=== PATIENT | female | born 1960 | race American Indian/Alaskan Native ===

== ENCOUNTER 2025-01-10 08:27 | Outpatient (CLI) | payer MEDICARE, SELFPAY ==
--- OUTSIDE RECORDS SUMMARY | 2025-01-10 08:47 | XMS_ITS | Clinical Summary ---
Author Organization [facility] Address [address] [place] [address] Phone Care Team Providers Care Senior Program Analyst Name Role Phone Tiff Cristina MD Primary Care Provider Social History Tobacco Use Types Packs/Day Years Used Date Smoking Tobacco: Never Assessed Comments No Sex and Gender Information Value Date Recorded Sex Assigned at Not on file Legal Sex Female 4:25 PM CDT Gender Identity Not on file Sexual Orientation Not on file Plan of Treatment Health Maintenance Due Date Last Done Comments DEXA Bone Density 1960 Hepatitis C Virus (HCV) Screening 1960 TdaP Immunization 1958 Pap Smear 12/24/1979 Cervical Cancer Screening (CCS) 1988 HPV/Cotest 1988 Colonoscopy 12/24/2003 Colorectal Cancer Screening 12/24/2003 Cologuard 2008 Immunochemical Fecal Occult Blood 2008 Pneumococcal Immunization (5 0+ years) (1 of 1 - PCV) 2008 Zoster Immunization (1 of 2) 2008 Mammogram 01/26/2018 01/27/2016 Influenza Immunization (#1) 2024 SARS-COV-2 Immunization ( - 2023- season) 2024 Respiratory Syncytial Virus (RSV) Immunization (Adult) (1 - 1-dose 75+ series) 2033 Hepatitis B Immunization Aged Out No longer eligible based on patient's age to complete this topic Meningococcal Immunization (ACWY) Aged Out No longer eligible based on patient's age to complete this topic Rotavirus Immunization Aged Out No lo nger eligible based on patient's age to complete this topic Procedures Procedure Name Priority Date/Time Associated Diagnosis Comments DARCY SCREENING BILATERAL DIGITAL W CAD Routine 01/27/2016 4:19 PM CDT Encounter for screening mammogram for malignant neoplasm of breast from Last 3 Months or Most Recently Relevant to Health Maintenance Results * DARCY SCREENING BILATERAL DIGITAL W CAD (01/27/2016 4:19 PM CDT) Anatomical Region Laterality Modality breast Bilateral Mammography 01/27/2016 3:58 PM CDT Narrative 02/06/2016 7:47 AM CDT - DARCY SCREENING BILATERAL DIGITAL W CAD BILATERAL DIGITAL SCREENING MAMMOGRAM WITH CAD WITH MEDIOLATERAL OBLIQUE CRANIOCAUDAL: 01/27/2016 The study was acquired using digital technology and interpreted from soft copy. Current study was also evaluated with [email or web address] version 7.2. CLINICAL: Routine screening. Patient has no complaints. No personal history of cancer. No family history of breast cancer. COMPARISONS: Comparison is made to exams dated: 03/31/2012, 04/21/2012, 03/28/2013, and 04/19/2014 [facility]. BREAST TISSUE:The tissue of both breasts is heterogeneously dense. This may lower the sensitivity of mammography. FINDINGS: No significant masses, calcifications, or other findings are seen in either breast. There has been no significant interval change. IMPRESSION: BI-RAD 1 NEGATIVE There is no mammographic evidence of malignancy. A 1 year screening mammogram is recommended. The patient has been or will be contacted. The patient will be entered into a reminder system with a target due date of 1 year for her next screening exam. Electronically signed by: Jose Carlos morales/abigail:02/05/2016 08:25:42 [employer]likview Developer: Akua Aviles, [facility] letter sent: Normal Exam Reading location: [facility] BI-RADS: 1 Negative Procedure Note Jose Carlos Sanford MD - 02/06/2016 - DARCY SCREENING BILATERAL DIGITAL W CAD BILATERAL DIGITAL SCREENING MAMMOGRAM WITH CAD WITH MEDIOLATERAL OBLIQUE CRANIOCAUDAL: 01/27/2016 The study was acquired using digital technology and interpreted from soft copy. Current study was also evaluated with ICAD version 7.2. CLINICAL: Routine screening. Patient has no complaints. No personal history of cancer. No family history of breast cancer. COMPARISONS: Comparison is made to exams dated: 03/31/2012, 04/21/2012, 03/28/2013, and 04/19/2014 [facility]. BREAST TISSUE:The tissue of both breasts is heterogeneously dense. This may lower the sensitivity of mammography. FINDINGS: No significant masses, calcifications, or other findings are seen in either breast. There has been no significant interval change. IMPRESSION: BI-RAD 1 NEGATIVE There is no mammographic evidence of malignancy. A 1 year screening mammogram is recommended. The patient has been or will be contacted. The patient will be entered into a reminder system with a target due date of 1 year for her next screening exam. Electronically signed by: Jose Carlos Sanford M.D. bs/abigail:02/05/2016 08:25:42 [employer] Developer: Akua Aviles, [facility] letter sent: Normal Exam Reading location: [facility] BI-RADS: 1 Negative us Floyd Newman MD IMG MAMMO ORDERABLES F inal Result from Last 3 Months or Most Recently Relevant to Health Maintenance Care Teams Senior Program Analyst Relationship Specialty Start Date End Date Tiff Cristina MD [address] [place] [address] PCP - General Internal Medicine 12/24/15
--- OUTSIDE RECORDS SUMMARY | 2025-01-10 08:47 | XMS_ITS | Data Portability ---
Author Organization [facility] Address [address] [facility] [place] [address] Care Team Providers Care Speech Pathology Supervisor Name Role Phone TIFF COBURN Primary Care Provider [phone] Assessment No assessment recorded. Plan of Treatment Reminders Order Date Submit Date Provider Last Modified By Organization Details Last Modified Time Details Appointments None recorded. Lab BMP, serum or plasma 2020 021 [facility], [address] [place] [address], [place] [address], [place], [address], 07:07:46 lipid panel, serum 2020 021 [facility], [address] [place] [address], [facility] [address], [place], [address], 07:07:47 CBC 2020 021 [facility], [address] [place] [address], [facility] [address], [place], [address], 07:07:45 vitamin D, 25-hydrox y, total, serum 2020 021 [facility], [address] [place] [address], [facility] [address], [place], [address], 07:07:47 SARS CoV 2 RNA (COVID-19 ), QL, taper operator-PCR, respirato ry specimen - [place] location please 1300 2019 020 [facility] (Lab), [address] [place], [address], 0 11:02:47 Referral orthopedi c referral 2020 021 [facility], [address] [facility], [facility] [address], [place], [address], 1 10:57:16 Procedures None recorded. Surgeries None recorded. Imaging electroca rdiogram 2020 021 [facility] ([facility]), [address] [place], [address], 1 10:52:16 electroca rdiogram 2020 021 [email or web address] In-Office Order, Internal Use Only DO Not Attach Compendium DO Not Attach Compendium, Do Not Delete/merge, [id number] 1 11:49:13 MAMMO, screening , digital, bilateral 2020 021 [facility], [address], [place] [address], [place], [address], 1 16:28:53 XR, humerus 2016 017 [facility], [address] [place], [address], 7 15:22:44 Medication Orders naproxen 500 mg tablet,de layed release 2016 017 INTERFACE Not available 7 12:15:00 acetamino phen 500 mg tablet 2016 017 INTERFACE [id number], [address], [place], [id number], 7 12:14:04 cyclobenz aprine 10 mg tablet 2016 017 INTERFACE Not available 7 12:15:02 Patient TargetsNo targets recorded. Patient Instructions Encounter Date Encounter Id Patient Instructions Last Modified By Organization Details Last Modified Time 02/09/2020 [id number] Reviewed the following recommendations: -Stay home and separate from others as much as possible. -Monitor your symptoms and seek medical attention for trouble breathing, persistent chest pain, confusion, or bluish lips or face. -Wear a mask if you must be around other people. -Wash your hands often for 20 seconds with soap and water and clean high-touch surfaces daily -You may discontinue home isolation if your symptoms are improving and it has been 10 days since symptoms started. [email or web address] Not available 02/09/2020 11:09:04 Reason for Referral Orthopedic Referral for Acqu ired curvature of spine Referring Physician: Tiff Coburn, Internal Medicine, Encounter Date: 02/12/2021 Results Created Date Observation Date Name Description Value Unit Range Abnormal Flag Note LastModifiedBy Organization Detail LastModifiedTime 04/26/20 17 04/27/2017 fecal occul t blood , stool Occult Blood negati ve Not Available In-Office Order Internal Use Only DO Not Attach Compendium DO Not Attach Compendium, Do Not Delete/merge, [id number] 04/26/2017 15:57:02 04/26/20 17 04/26/2017 urina lysis , dipst ick Leukocytes Small Not Available In-Offi ce Order Internal Use Only DO Not Attach Compendium DO Not Attach Compendium, Do Not Delete/merge, [id number] 04/26/2017 15:41:59 04/26/20 17 04/26/2017 urina lysis , dipst ick Nitrite negati ve Not Available In-Office Order Internal Use Only DO Not Attach Compendium DO Not Attach Compendium, Do Not Delete/merge, [id number] 04/26/2017 15:41:59 04/26/20 17 04/26/2017 urina lysis , dipst ick Urobilinogen .2 Not Available In-Of fice Order Internal Use Only DO Not Attach Compendium DO Not Attach Compendium, Do Not Delete/merge, [id number] 04/26/2017 15:41:59 04/26/20 17 04/26/2017 urina lysis , dipst ick Protein Negati ve Not Available In-Office Order Internal Use Only DO Not Attach Compendium DO Not Attach Compendium, Do Not Delete/merge, 04/26/2017 15:41:59 04/26/20 17 04/26/2017 urina lysis , dipst ick pH 6.5 Not Available In-Office Order Internal Use Only DO Not Attach Compendium DO Not Attach Compendium, Do Not Delete/merge, 04/26/2017 15:41:59 04/26/20 17 04/26/2017 urina lysis , dipst ick Blood Negati ve Not Available In-Office Order Internal Use Only DO Not Attach Compendium DO Not Attach Compendium, Do Not Delete/merge, 04/26/2017 15:41:59 04/26/20 17 04/26/2017 urina lysis , dipst ick Specific [place] 1.025 Not Available In-Off ice Order Internal Use Only DO Not Attach Compendium DO Not Attach Compendium, Do Not Delete/merge, 04/26/2017 15:41:59 04/26/20 17 04/26/2017 urina lysis , dipst ick Ketone Negati ve Not Available In-Office Order Internal Use Only DO Not Attach Compendium DO Not Attach Compendium, Do Not Delete/merge, 04/26/2017 15:41:59 04/26/20 17 04/26/2017 urina lysis , dipst ick Bilirubin Negati ve Not Available In-Office Order Internal Use Only DO Not Attach Compendium DO Not Attach Compendium, Do Not Delete/merge, 04/26/2017 15:41:59 04/26/20 17 04/26/2017 urina lysis , dipst ick Glucose Negati ve Not Available In-Office Order Internal Use Only DO Not Attach Compendium DO Not Attach Compendium, Do Not Delete/merge, 04/26/2017 15:41:59 04/26/20 17 04/28/2017 pap, IG + HPV, cervi ute diagnosis: COMMEN T NEGAT CATHY FOR INTRA EPITH ELIAL LESIO N AND MALIG PATY . CELLU LAR MCCAIN ES ASSOC IATED WITH ATROP HY ARE PRESE NT. Not Available [facility] ([facility]) [address] [facility], [place], [address], 04/28/2017 14:11:31 04/26/20 17 04/28/2017 pap, IG + HPV, cervi ute specimen adequacy: STANTON Benton SATIS FACTO RY FOR EVALU ATION . ENDOC ERVIC AL COMPO NENT MAY NOT BE DISTI NGUIS HED IN CASES OF ATROP HY. Not Available [facility] ([facility]) [address] [place], [address], 04/28/2017 14:11:31 04/26/20 17 04/28/2017 pap, IG + HPV, cervi ute clinician provided ICD10: STANTON Benton Z01.4 19 Not Available [facility] ([facility]) [address] [place], [address], 04/28/2017 14:11:31 04/26/20 17 04/28/2017 pap, IG + HPV, cervi ute performed by: STANTON Garner CYTOChetan Benton (ASCP ) Not Available [facility] ([facility]) [address] [place], [address], 04/28/2017 14:11:31 04/26/20 17 04/28/2017 pap, IG + HPV, cervi ute . . Not Available [facility] ([facility]) [address] [place], [address], 04/28/2017 14:11:31 04/26/20 17 04/28/2017 pap, IG + HPV, cervi ute note: STANTON Benton THE PAP SMEAR IS A SCREE DANIELLE TEST DESIG HENRIETTA TO AID IN THE DETEC TION OF DAVID LIGNA NT AND MALIG NANT CONDI TIONS OF THE UTERI NE CERVI X. IT IS NOT A DIAGN OSTIC PROCE DURE AND SHOUL D NOT BE USED THE SOLE MEANS OF DETEC TING CERVI UTE CANCE R. BOTH FALSE -POSI TIVE AND FALSE -NEGA TIVE REPOR TS DO OCCUR . Not Available [facility] ([facility]) [address] [facility], [place], [address], 04/28/2017 14:11:31 04/26/20 17 04/28/2017 pap, IG + HPV, cervi ute test methodology: COMMEN T THIS LIQUI D BASED THINP REP(R ) PAP TEST WAS SCREE HENRIETTA WITH THE USE OF AN IMAGE GUIDE Anu Torres. Not Available [facility] ([facility]) [address] [facility], [place], [address], 04/28/2017 14:11:31 04/26/20 17 04/28/2017 pap, IG + HPV, cervi ute HPV aptima POSITI VE negati ve abnormal THIS TEST DETEC TS FOURT EEN HIGH- RISK HPV TYPES (16/1 8/31/ 33/35 /39/4 5/ 51/52 /56/5 8/59/ 66/68 ) WITHO UT DIFFE RENTI ATION . Not Available [facility] ([facility]) [address] [facility], [place], [address], 04/28/2017 14:11:31 02/09/20 20 02/09/2020 SARS CoV 2 RNA (COVI D-19) , QL, taper operator-P CR, respi rator y speci men sars - cov - 2 PCR NEGATI VE mL Not Available [facility] (Lab) [address] [place] [address], [address], 02/12/2020 11:02:47 02/09/20 20 02/09/2020 SARS CoV 2 RNA (COVI D-19) , QL, taper operator-P CR, respi rator y speci men covidcom1 COMME NTS: This assay is desig henrietta to detec t the RdRp and N genes of SARS- CoV-2 using nucle ic acid ampli ficat ion. A negat cathy resul t does not precl ude the possi bilit y of 2019- nCoV infec tion since the adequ acy of sampl e colle ction and/o r low viral burde n may resul t in the prese nce of viral nucle ic acids level s below the cortez tical sensi tivit y of this test metho d. Not Available [facility] (Lab) [address] [place], [address], 02/12/2020 11:02:47 02/09/20 20 02/09/2020 SARS CoV 2 RNA (COVI D-19) , QL, taper operator-P CR, respi rator y speci men covidcom2 Posit cathy resul ts are indic ative of the prese nce of SARS- CoV-2 RNA and do not rule out bacte rial infec tion or co-in fecti on with other virus es. Not Available [facility] (Lab) [address], [place], [address], 02/12/2020 11:02:47 02/09/20 20 02/09/2020 SARS CoV 2 RNA (COVI D-19) , QL, taper operator-P CR, respi rator y speci men covidcom3 Test resul ts shoul d be used along with other clini ute obser vatio ns, patie nt histo ry, epide miolo gical infor matio n and labor atory data in makin g the diagn osis. Not Available [facility] (Lab) [address], [place], [address], 02/12/2020 11:02:47 02/09/20 20 02/09/2020 SARS CoV 2 RNA (COVI D-19) , QL, taper operator-P CR, respi rator y speci men covidcom4 This test has recei cheikh FDA Emerg ency Use Autho rizat ion and has been verif ied by [facility] . This test is only autho rized for the durat ion of the decla ratio n and the circu mstan lizbeth that exist to justi fy the autho rizat ion of the emerg ency use of in vitro diagn ostic tests for the detec tion of SARS- CoV-2 virus and/o r diagn osis of COVID -19 infec tion under secti on 564 (b) (1) of the Act. 11 U.S.C . 360bb b-3 (b) (1), unles s the autho ankur diaz is termi nated or revok ed soonsarah garner. Not Available [facility] (Lab) [address], [place], [address], 02/12/2020 11:02:47 02/09/20 20 02/09/2020 SARS CoV 2 RNA (COVI D-19) , QL, taper operator-P CR, respi rator y speci men covidcom5 [facility] is certi fied under CLIA- 88 as quali fied to perfo rm high compl exity testi ng. This testi ng was perfo rmed in the [facility] [place] [address] (CLIA Licen se #14D0 16188 5, CAP #[id number], AU-ID #[id number]). Not Available [facility] (Lab) [address], [place], [address], 02/12/2020 11:02:47 02/09/20 20 02/09/2020 SARS CoV 2 RNA (COVI D-19) , QL, taper operator-P CR, respi rator y speci men covidcom6 Facts heet for healt hcare provi ders: https ://ww w.fda .gov/ media /1362 56/do wnloa d Facts heet for patie nts: https ://ww w.fda .gov/ media /1362 57/do wnloa d Not Available [facility] (Lab) [address], [place], [address], 02/12/2020 11:02:47 02/02/20 21 02/02/2021 CBC WBC 7.1 x10e3 /uL 3.4-10 .8 Not Available [facility] ([facility]) [address] [facility], [place], [address], 02/02/2021 07:07:45 02/02/20 21 02/02/2021 CBC RBC 4.67 x10e6 /uL 3.77-5 .28 Not Available [facility] ([facility]) [address] [place], [address], 02/02/2021 07:07:45 02/02/20 21 02/02/2021 CBC hemoglobin 14.1 g/dL 11.1-1 5.9 Not Available [facility] ([facility]) [address] [facility], [place], [address], 02/02/2021 07:07:45 02/02/20 21 02/02/2021 CBC hematocrit 42.8 % 34.0-4 6.6 Not Available [facility] ([facility]) [address] [facility], [place], [address], 02/02/2021 07:07:45 02/02/2002/02/2021 CBC MCV 92 fL 79-97 Not Available [facility] ([facility]) [address] [place], [address], 02/02/2021 07:07:45 02/02/2002/02/2021 CBC MCH 30.2 pg 26.6-3 3.0 Not Available [facility] ([facility]) [address] [facility], [place], [address], 02/02/2021 07:07:45 02/02/2002/02/2021 CBC MCHC 32.9 g/dL 31.5-3 5.7 Not Available [facility] ([facility]) [address] [place], [address], 02/02/2021 07:07:45 02/02/2002/02/2021 CBC RDW 12.5 % 11.7-1 5.4 Not Available [facility] ([facility]) [address] [place], [address], 02/02/2021 07:07:45 02/02/20 21 02/02/2021 CBC platelets 295 x10e3 /uL 150-45 0 Not Available [facility] ([facility]) [address] [place], [address], 02/02/2021 07:07:45 02/02/20 21 02/02/2021 CBC NRBC AUTO DEALER Not Available [facility] ([facility]) [address] [place], [address], 02/02/2021 07:07:45 02/02/20 21 02/02/2021 BMP, serum or plasm a glucose 88 mg/dL 65-99 Not Available [facility] ([facility]) [address] [place], [address], 02/02/2021 07:07:46 02/02/20 21 02/02/2021 BMP, serum or plasm a BUN 12 mg/dL 8-27 Not Available [facility] ([facility]) [address] [place], [address], 02/02/2021 07:07:46 02/02/20 21 02/02/2021 BMP, serum or plasm a creatinine 0.66 mg/dL 0.57-1 .00 Not Available [facility] ([facility]) [address] [place], [address], 02/02/2021 07:07:46 02/02/20 21 02/02/2021 BMP, serum or plasm a eGFR if nonafricn AM 95 mL/mi n/1.7 3 >59 Not Available [facility] ([facility]) [address] [place], [address], 02/02/2021 07:07:46 02/02/20 21 02/02/2021 BMP, serum or plasm a eGFR if africn AM 109 mL/mi n/1.7 3 >59 Lab maile laly ntly repor ts eGFR in compl iance with the curre nt recom menda tions of the Natio nal Kidne y Found ation . Labco rp will updat e chalo valdivia as new guide lines are publi shed from the NKF-A SN Task force . Not Available [facility] ([facility]) [address] [place], [address], 02/02/2021 07:07:46 02/02/20 21 02/02/2021 BMP, serum or plasm a BUN/creatini ne ratio 18 12-28 Not Available [facility] ([facility]) [address] [place], [address], 02/02/2021 07:07:46 02/02/20 21 02/02/2021 BMP, serum or plasm a sodium 141 mmol/ L 134-14 4 Not Available [facility] ([facility]) [address] [place], [address], 02/02/2021 07:07:46 02/02/20 21 02/02/2021 BMP, serum or plasm a potassium 4.7 mmol/ L 3.5-5. 2 Not Available [facility] ([facility]) [address] [place], [address], 02/02/2021 07:07:46 02/02/20 21 02/02/2021 BMP, serum or plasm a chloride 104 mmol/ L 96-106 Not Available [facility] ([facility]) [address] [place], [address], 02/02/2021 07:07:46 02/02/20 21 02/02/2021 BMP, serum or plasm a carbon dioxide, total 27 mmol/ L 20-29 Not Available [facility] ([facility]) [address] [place], [address], 02/02/2021 07:07:46 02/02/20 21 02/02/2021 BMP, serum or plasm a calcium 9.8 mg/dL 8.7-10 .3 Not Available [facility] ([facility]) [address] [facility] [place], [address], 02/02/2021 07:07:46 02/02/20 21 02/02/2021 lipid panel , serum cholesterol, total 215 mg/dL 100-19 9 above high normal Not Available [facility] ([facility]) [address] [facility] [place], [address], 02/02/2021 07:07:46 02/02/20 21 02/02/2021 lipid panel , serum triglyceride s 76 mg/dL 0-149 Not Available [facility] ([facility]) [address] [place], [address], 02/02/2021 07:07:46 02/02/20 21 02/02/2021 lipid panel , serum HDL cholesterol 59 mg/dL >39 Not Available [facility] ([facility]) [address] [place], [address], 02/02/2021 07:07:46 02/02/20 21 02/02/2021 lipid panel , serum VLDL cholesterol ute 13 mg/dL 5-40 Not Available [facility] ([facility]) [address] [place], [address], 02/02/2021 07:07:46 02/02/20 21 02/02/2021 lipid panel , serum LDL chol calc ([facility]) 143 mg/dL 0-99 above high normal Not Available [facility] ([facility]) [address] [place], [address], 02/02/2021 07:07:46 02/02/20 21 02/02/2021 lipid panel , serum comment: AUTO DEALER Not Available [facility] ([facility]) [address] [place], [address], 02/02/2021 07:07:46 02/02/20 21 02/02/2021 vitam in D, 25-hy droxy , total , serum vitamin D, 25-hydroxy 36.9 NG/mL 30.0-1 00.0 Vitam in D defic iency has been defin ed by the Insti tute of Medic ine and an Endoc rine Socie ty pract ice guide line as a level of serum 25-OH vitam in D less than 20 ng/mL (1,2) . The Endoc rine Socie ty went on to [facility] stanly er defin e vitam in D insuf ficie ncy as a level betwe en 21 and 29 ng/mL (2). 1. IOM (Inst itute of Medic ine). 2009. Dieta ry refer ence intak es for calci um and D. Dory reich [place]: [facility] Press . 2. Hipolito wright MF, Luisa gonzalez [place], Kathryn off-F errar i VELASQUEZ, et al. Evalu ation , treat ment, and preve ntion of vitam in D defic iency : an Endoc rine Socie ty clini ute pract ice guide line. JCEM. 2010; 96(7) :1911 -30. Not Available [facility] ([facility]) [address] [facility] [address], [place], [address], 02/02/2021 07:07:47 05/21/20 17 05/17/2017 bone densi ty No observ ation record ed. [facility] [address] [place], [address], 05/27/2017 18:15:34 05/21/20 17 05/17/2017 MAMMO , scresarah dewitt, bilat eral No observ ation record ed. BETY Not Available 2016 18:15:34 06/18/20 17 01/27/2016 imagi ng/di bridget rae resul t No observ ation record ed. [facility] [address] [place], [address], 06/21/2017 21:43:07 09/04/20 17 09/04/2017 XR, prashanth us No observ ation record ed. [email or web address] Not Available 2017 10:37:50 01/28/20 21 01/30/2021 elect angel ramirez am No observ ation record ed. [email or web address] In-Office Order Internal Use Only DO Not Attach Compendium DO Not Attach Compendium, Do Not Delete/merge, [id number] 01/30/2021 18:52:00 02/11/20 21 02/10/2021 elect angel cantorgr am No observ ation record ed. [email or web address] [facility] ([facility]) [address] [place], [address], 02/14/2021 09:45:05 Result Notes None recorded. Problems Name Problem SNOMED Code Status Onset Date Resolution Date Notes Provider Name and Address Organization Details Recorded Time Contusion of upper limb 16660813 Active 2016 left lateral upper arm Tiff Coburn MD Attn: Clarence leone,[address] [place], [address], [place] - [facility] 7 16:54:21 Atypical chest pain 345164065 Active 2020 Tiff Coburn MD Attn: Clarence leone,[address] [place], [address], [place] 1 14:52:19 Osteopenia 667494454 Active 2020 Tiff Coburn MD Attn: Clarence leone,[address] [place], [address], [place] 1 15:00:19 Screening for malignant neoplasm of breast Active 2020 Tiff Coburn MD Attn: Clarence leone,[address] [facility], [place], [address], [place] 1 15:00:59 Acquired curvature of spine 53697354 Active 2020 upper back Tiff Coburn MD Attn: Clarence leone,[address] [place], [address], [place] [facility] 1 13:06:53 Low back pain 560060964 Active Tiff Coburn MD Attn: Clarence leone,[address] [facility], [place], [address], [facility] - S[facility] 6 03:36:57 Abdominal bloating 108031276 Active Sonia Morales MA null, [place] - [facility] 6 10:51:44 Bloating symptom 020051775 Active Tiff Coburn MD Attn: Clarence leone,[address] [facility], [place], [address], [place] [facility] 6 17:44:19 Constipati on 38225796 Active Tiff Coburn MD Attn: Clarence leone,[address] [facility], [place], [address], [facility] - [facility] 6 12:13:32 Levoscolio sis 485717170069 102 Active Tiff Coburn MD Attn: Clarence leone,[address] [facility], [place], [address], [facility] - S[facility] 6 12:13:32 Problem Notes None recorded. Procedures Surgical History Date Name Laterality Status Provider Name and Address Organization Details Recorded Time 04/26/20 17 Date of Last Pap Smear completed Salud Kebede MA [facility] 04/26/2017 15:37:25 01/27/20 16 Most Recent Mammogram completed Salud Kebede MA [facility] 04/26/2017 15:38:25 Tubal Ligation completed Sangeetha Magallanes MA [facility] 12/02/2015 11:41:04 Breast Surgery completed Sangeetha Magallanes MA [facility] 12/02/2015 11:41:04 Appendectomy completed Sangeetha Magallanes MA [facility] 12/02/2015 11:41:04 Imaging Results Imaging Date Name Status LastModified by Organization Details LastModified Time 05/17/2017 bone density completed [facility] [address] [facility], [place], [address], 05/27/2017 18:15:34 05/17/2017 MAMMO, screening, bilateral completed BETY Information not available 05/27/2017 18:15:34 01/27/2016 imaging/diagnostic result completed BETY [facility] [address] [place], [address], 06/21/2017 21:43:07 09/04/2017 XR, humerus completed [email or web address] Information n ot available 09/16/2017 10:37:50 01/30/2021 electrocardiogram completed [email or web address] In-Offi ce Order Internal Use Only DO Not Attach Compendium DO Not Attach Compendium, Do Not Delete/merge, [id number] 01/30/2021 18:52:00 02/10/2021 electrocardiogram completed [email or web address] [facility] ([facility]) [address] [place], [address], 02/14/2021 09:45:05 Procedure Notes None recorded. Medical Equipment None Reported. Allergies Allergen ID Allergen Name Allergen Category Reaction Reaction Severity Criticality Documentation Date Start Date Code Code System Note Provider Name and Address Organization Details Recorded Time 10906 chocolate flavor food,medi cation headache Not available Not available 12/02/2015 38667 UNK ALYSSIA [place], [place] - [facility] 6 11:40:07 Medications Name Sig Start Date Stop Date Status Note LastModified by Organization Details LastModified Time multivitami n tablet Take 1 tablet every day by oral route. 2016 active Not Available Not Available Not Avai lable cyclobenzap rine 10 mg tablet Take 1 tablet twice a day by oral route as needed. active Not Available Not Available No t Available Colace 100 mg capsule Take 2 capsules every day by oral route. 2015 active Not Available Not Available Not Avai lable acetaminoph en 500 mg tablet Take 2 tablets 3 times a day by oral route as needed. 2016 active Not Available Not Available Not Avai lable meloxicam 7.5 mg tablet TAKE 1 TABLET BY MOUTH EVERY DAY active Not Available Not Available No t Available naproxen 500 mg tablet,jeronimo yed release Take 1 tablet twice a day by oral route with meals. 2016 active Not Available Not Available Not Avai lable ibuprofen 200 mg tablet Take 1 tablet every 6 hours by oral route. active Not Available Not Available No t Available naproxen 500 mg tablet TAKE 1 TABLET(S) TWICE A DAY BY MOUTH WITH MEALS. active Not Available Not Available No t Available lidocaine 5 % topical ointment Apply 1-2 grams to the affected area 2-4 times a day (apply only to a single body part per applicati on ie feet / hands ) - 30 day supply active Not Available Not Available No t Available calcium 600 mg (as carbonate)- vitamin D3 20 mcg (800 unit) tablet Take 1 tablet twice a day by oral route for 30 days. 2016 active Not Available Not Available Not Avai lable Linzess 145 mcg capsule Take 1 capsule every day by oral route. 2015 active Not Available Not Available Not Avai lable Fluvirin (PF) 45 mcg (15 mcg x 3)/0.5 mL intramuscul ar syringe 01/27 completed Not Available Not Available Not Available Vitals Date Recorded Body height Body mass index (BMI) Body weight Body temperature Oxygen saturation Oxygen saturation in Arterial blood by Pulse oximetry Heart rate Systolic blood pressure Diastolic blood pressure Provider Name and Address Organization Details Last Updated DateTime 7 162.56 cm 19.8 kg/m2 10485.5 5 g 98 [degF] 99 % 99 % 63 /min 144 mm[Hg] 86 mm[Hg] Odalys Price MA [facility] 7 16:46:34 Date Recorded Body height Body mass index (BMI) Body weight Body temperature Heart rate Oxygen saturation Oxygen saturation in Arterial blood by Pulse oximetry Systolic blood pressure Diastolic blood pressure Provider Name and Address Organization Details Last Updated DateTime 1 162.56 cm 19.9 kg/m2 69477.7 1 g 98.1 [degF] 68 /min 98 % 98 % 114 mm[Hg] 76 mm[Hg] Odalys Price MA [facility] 1 14:24:37 Date Recorded Body height Provider Name an d Address Organization Details Last Updated DateTime 02/12/2021 162.56 [address] Price MA [facility] 1 12:19:50 Date Recorded Body height Body mass index (BMI) Body weight Body temperature Oxygen saturation Oxygen saturation in Arterial blood by Pulse oximetry Heart rate Systolic blood pressure Diastolic blood pressure Provider Name and Address Organization Details Last Updated DateTime 7 162.56 cm 18.5 kg/m2 54743.2 6 g 98.1 [degF] 97 % 97 % 69 /min 112 mm[Hg] 80 mm[Hg] Odalys Price MA [facility] 7 11:39:14 Date Recorded Body height Body mass index (BMI) Body weight Systolic blood pressure Diastolic blood pressure Provider Name and Address Organization Details Last Updated DateTime 04/26/2017 162.56 cm 18.2 kg/m2 73000.79 g 102 mm[Hg] 70 mm[Hg] Salud Kebede MA [facility] 7 15:43:52 Social History Question Answer Notes LastModified by Organizat ion Details LastModified Time Tobacco Smoking Status Former Smoker Sangeetha Magallanes MA [facility], [facility] 12/02/2015 11:44:58 Do You Have An Advance Directive? Yes Information not available 2015 What Is Your Level Of Alcohol Consumption? None Information not available 2015 Is Blood Transfusion Acceptable In An Emergency? Yes Information not available 2015 What Is Your Level Of Caffeine Consumption? Moderate Information not available 2015 How Much Tobacco Do You Chew? None Information not available 2015 Are You Currently Employed? Yes Information not available 2015 What Type Of Diet Are You Following? REGULAR Information not available 2015 Which Illicit Or Recreational Drugs Have You Used? 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 With Others Information not available 2015 What Was The Date Of Your Most Recent Tobacco Screening? 02/12/2021 [email or web address] Information not available 02/12/2021 How Many Children Do You Have? 4 Information not available 2015 Performs Monthly Self-breast Exam? No Information no t available 2015 Do You Use Protection During Sex? No Information not available 2015 What Is Your Relationship Status? Information not available 2015 Seat Belts Used Routinely Yes Information not available 2015 Are You Sexually Active? Yes Information not available 2015 General Stress Level Low Information not available 2015 Do You Use Sunscreen Routinely? No Information not available 2015 Sex: Unknown Functional Status Question Answer Note LastModified by Organization D etails LastModified Time What is your exercise level? None Information not available 2015 Mental Status None recorded. Family History Relationship Description Onset Age of this Age Resolved Age Notes LastModified by Organization Details LastModified Time Mother Diabetes mellitus [email or web address] Not available 12/22 17:04:38 Mother Hypertensive disorder [email or web address] Not available 12/22 17:04:38 Father Harmful pattern of use of alcohol [email or web address] Not available 12/22 17:04:38 Brother Diabetes mellitus [email or web address] Not available 12/22 17:04:38 Brother Kidney disease [email or web address] Not available 12/22 17:04:38 Sister Diabetes mellitus [email or web address] Not available 12/22 17:04:38 Medical History Condition Response Coronary Artery Disease N Blood Diseases N Kidney Cyst N Hyperthyroidism N Blood Transfusion N MRSA N Blood disorders N Emphysema N COPD N Blood Clots N Depression N Pneumonia N Peripheral Arterial Disease N Premature N Edema N TIA N Headaches/Migraines N Anxiety Disorder N Obesity N Infertility N Polyps N Acid Reflux (GERD) N Hematuria N Stroke N Neck Injury N Polio N Hospital Admission other than N Neurologic Disorder N Other Sleep Disorders N Rheumatoid Arthritis N Fibromyalgia N Abdominal Aortic Aneurysm Repair N Kidney Disease N Heart Conditions N Heart Disease/Heart Problems N Hospitalizations N Brain Tumors N Acne N Eating Disorder N Skin Problems N Constipation N Meningitis N Tuberculosis N Cerebral Palsy N Myocardial Infarction N Asthma N Substance Abuse N Peripheral Vascular Disease N Vertigo N Sleep Disorder N Cirrhosis N Pulmonary Embolism N Chicken Pox N Flomax Use Past or Present N Hematologic Disease N Anxiety/Depression N Thyroid Disease N Colon Cancer N Glaucoma N Lung Disease N Developmental or Behavioral Disorders N Bipolar N Pacemaker N Diverticulitis/Diverticulosis N Anesthesia Complications N Orthopedic Problems N Orthotics N Head Injury/Concussion N Congenital Anomalies N Darby Bite N Chronic Kidney Disease N Endometriosis N Liver Disease N Dialysis N Schizophrenia N Speech Delay N Chronic Obstructive Pulmonary Disease N Parkinson's Disease N Thyroid Problems N GI Problems N Developmental Delay N Anemia N Immune System Disorder N Multiple Sclerosis N Colon Polyps N Heart Attack (CT) N Diabetes N Cardiomyopathy N Blood Transfusions N Heart Problems/Murmur N Eye Trauma N Congestive Heart Failure (CHF) N Valvular Heart Disease N Hyperlipidemia N Double Vision N Abuse/Domestic Violence N Hepatitis B N Lupus N Epilepsy/Seizures N Reflux/GERD N Aneurysm N Bronchitis N Heart Disease N Hypertension N Pre-Eclampsia N Heart Failure N Other N Gout N High Blood Pressure N Atrial Fibrillation N Kidney Stones N Head Trauma/Injury N Congenital Heart Disease N Spine Problems N Gastrointestinal Disease N Lung Mass N Sinusitis N Obstructive Sleep Apnea N Muscle, Joint, or Bone Problems N Autoimmune disease N Vision or Eye Problems N Arthritis N Blood Clot N Cancer N Seasonal allergies N Leg or Foot Ulcers N Raynaud's Disease N Aortic Aneurysm N Arrhythmia N Headaches N Heart Problems N Ambloypia N Ear or Hearing Problems N Hyperparathyroidism N Migraines N Artificial Joints N Kidney or Bladder Problems N NSAID Use N Encephalitis N PTSD N Ulcers N Prostate Hypertrophy N Bleeding Disorder N AIDS/HIV N Urinary Tract Infection N Back Problems N Allergies N Atrial Flutter N GERD/Reflux N Hepatitis N Autism Spectrum Disorder (ASD) N Breast Cancer N Hernia N Hypothyroidism N Breast Problem N Genitourinary Disease N Deep Vein Thrombosis N Varicose Veins N Cystic Fibrosis N Hearing Loss N Developmental Problems N Carotid Disease N Vitamin D Deficiency N ADHD N Bladder or Kidney Problems N High Cholesterol N [place] N Valvular Abnormalities N Psychiatric/Mental Health Condition N Organ Transplant N Foot Deformity N Allergies/Hayfever N Dyslipidemia N Hyponatremia N Diabetic Eye Disease N Osteoporosis/Osteopenia N Back Pain N Proteinuria N Mental Illness N Neurological Problems N Ovarian Cancer N Bedwetting N Seizures/Epilepsy N Kidney Failure N Ocular trauma N Dementia N Diverticulitis N Sleep Apnea N Mental Problems N Warfarin Management N Osteoporosis N Gynecological History Statement/Question Response Abnormal Pap N STIs/STDs N HPV Vaccine N Most Recent Mammogram 01/27/2016 Current Control Method Tubal Ligat ion Age at First Child 16 If Post Menopausal, Age at Menopause 41 Sexually Active? Y Menses Monthly N Date of Last Pap Smear 04/26/2017 Sexual Problems? N LMP Unknown Obstetrics History GPAL:G 5 P 4 0 1 4 Type Value Multiple Births 0 Full Term 4 Induced 0 Spontaneous 1 Premature 0 Living 4 Ectopics 0 Total 5 Past Encounters Encounter ID Performer Location Encounter Start Date Encounter Closed Date Diagnosis/Indication Diagnosis SNOMED-CT Code Diagnosis ICD10 Code Diagnosis Note [id number] Tiff Coburn MD [facility] (Adult Med) [address] [place] [address] [id number] 12/02/2015 11:19:51 12/02/2015 15:16:18 Low back pain 590901681 M54.5 Abdominal bloating 23945 9008 R14.0 Bloating symptom 4334978 00 R14.0 Constipation 42977033 K5 9.00 History of arthritis 275 287119 Z87.39 [id number] MD Sarah Vitale (EMPLOYMENT OFFICE CLERK) [address] [place] [address] [id number] 2015 09:49:02 2015 12:32:19 Screening mammography 14454650 Z12.31 Constipation 93361433 K5 9.00 Screening for malignant neoplasm of breast 493557193 Z12.31 [id number] [facility] [address] [place] [address] [id number] 01/13/2016 10:43:37 01/13/2016 12:15:34 Low back pain 828249004 M54.5 Alternate acetaminop hen and ibuprofen Constipation 67577691 K5 9.00 Bloating symptom 7003055 00 R14.0 Levoscoliosis 0908539199 77014 M41.80 [id number] MD Sarah Ortega (Adult Med) [address] [place] [address] [id number] 0 05/26/2016 16:03:29 05/26/2016 17:46:01 Low back pain 029168264 M54.5 Alternate acetaminop hen and ibuprofen. Pt encouraged to call insurance re coverage for PT. Also consider use of probiotic to assist in decreased gas production Bloating symptom 6377089 00 R14.0 [id number] MD Sarah Ortega (Adult Med) [address] [place] [address] [id number] 0 08/03/2016 16:15:48 08/04/2016 11:48:41 Low back pain 966405615 M54.5 Alternate acetaminop hen and ibuprofen. Pt encouraged to call insurance re coverage for PT. Also consider use of probiotic to assist in decreased gas production . Levoscoliosis 7951132341 89432 M41.80 [id number] Tiff Coburn MD [facility] (Adult Med) [address] [place] [address] [id number] 0 01/12/2017 16:28:48 01/12/2017 17:58:16 Levoscoliosis 6040128574 26204 M41.80 Low back pain 199465529 M54.5 Alternate acetaminop hen and naproxen. ADd HS muscle relaxant [id number] MD Sarah Ortega (Adult Med) [address] [place] [address] [id number] 0 04/26/2017 10:09:16 04/26/2017 14:32:38 Low back pain 197542810 M54.5 Combine acetaminop hen and naproxen. ADd HS muscle relaxant Levoscoliosis 6859650515 34812 M41.80 [id number] [facility] ([facility] OFFICE CLERK[facility] [address] [place] [address] [id number] 0 04/26/2017 14:37:46 04/27/2017 18:14:55 Gynecologic examination 88980570 Z01.419 Screening mammography 24 641119 Z12.31 Screening for osteoporosis 548667563 Z13.820 Menopause present 754802 006 N95.1 Declines any treatment. Is on arthritic medicine from Dr. Coburn. [id number] MD Sarah Ortega (Adult Med) [address] [place] [address] [id number] 09/02/2017 15:07:54 09/03/2017 09:29:11 Contusion of upper limb 58725610 S40.022A [id number] MD Kimber FloressorQuinton wyattut [address] [place] [address] 02/09/2020 10:46:59 02/13/2020 12:28:21 Exposure to SARS-CoV-2 852263028 Z20.106 [id number] [facility] [address] [place] [address] 01/27/2021 13:58:26 01/28/2021 12:56:30 Atypical chest pain 396055826 R07.89 Screening for malignant neoplasm of breast 678648021 Z12.39 Low back pain 372231358 M54.5 Combine acetaminop hen and naproxen. ADd HS muscle relaxant Osteopenia 065618208 M85 .80 [id number] Tiff Coburn MD [facility] (Adult Med) [address] [place] [address] 02/12/2021 12:19:09 02/13/2021 12:16:48 Acquired curvature of spine 91778210 M43.9 Health Concerns Section Related Observation LastModified by Organization Detai ls LastModified Time None Recorded Concern Status LastModified by Organization Details LastModified Time None Recorded Advance Directives Directive Y: Payers Encounter Date Sequence Insurance Name Policy Number Policy Kimball Covered Member ID Kimball Member ID Guarantor Name 04/26/2017 1 [place] [id number] Dori Elders [id number] Dori Elders 09/02/2017 1 [place] [id number] Dori Elders [id number] Dori Elders 02/09/2020 1 *SELF PAY* Tr baldomero Elders 02/12/2021 1 *SELF PAY* Tr baldomero Elders Notes Date Note Type Note Provider Name and Address Organization Details Recorded Time 04/26/2017 text/html 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 Post-MenopausalReporte d bypatient.Menopausal Symptoms:no menopausal symptoms; normal vaginal lubrication Vaginal Bleeding:history of menopause having occurred; no history of post menopausal bleeding Urinary Symptoms:no hematuria; no incontinence; no nocturia; no urinary frequency Vulva:no genital lesion;atrophic vulva Vagina:normal vaginal discharge;atrophic vagina Breast:no breast lump; no nipple discharge; no breast pain Sexual Complaints:no sexual complaints Psychological Symptoms:no depression; no anxiety Preventive Measures:encourage regular mammograms starting age 40; encourage self breast examination; encourage regular exercise; encourage no tobacco use; needs to schedule mammogram; needs to schedule colonoscopy; needs to schedule bone density 56 year old [id number] here 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 Floyd thomas, [facility] 04/26/2017 16:05:16 04/26/2017 text/html Is in a lot of p ain at present. WAs unable to afford the muscle relaxant. The naproxen worked well. Tiff Coburn MD Attn: Accounting,[address] [place], [address], [facility] 04/26/2017 12:16:03 09/02/2017 text/html Fell and bruised left shoulder two weeks ago. Still has moderate discomfort. Tiff Coburn MD Attn: Accounting[address] [place], [address], [facility] 09/02/2017 17:00:54 02/09/2020 text/html COVID ScreeningReported bypatient.Onset/Durati on of fever:no fever Associated Symptoms:no cough; no shortness of breathCOVID-19 Symptoms January 2020Reported bypatient.COVID-19 Signs and Symptomscough resolved; fever resolved; shortness of breath resolved; chills resolved; repeated shaking with chills resolved; muscle pain resolved; headache resolved; sore throat resolved; loss of taste or smell resolved; vomiting or diarrhea resolved; fatigue resolved; anorexia resolved Contacts and Exposureclose proximity with person with COVID-19; reside in or traveled to areas where widespread community transmission has been reported Khushi Richter null, [facility] 02/09/2020 12:11:33 01/27/2021 text/html Has had recurren t chest pain Tiff Coburn MD Attn: Accounting[address] [place], [address], [facility] 01/27/2021 15:20:19 02/12/2021 text/html Telephone visit due to Covid-19 precautions. She has developed curvature in her upper back and has slight low back pain. She wants brace for her upper back Tiff Coburn MD Attn: Accounting[address] [place], [address], [facility] 02/12/2021 13:09:41 OBGyn Episode No OBEpisode recorded.
--- OUTSIDE RECORDS SUMMARY | 2025-01-10 08:47 | XMS_ITS | Clinical Summary ---
Author Organization [facility] Address [address] [place] [address] Care Team Providers Care Flower Grader Name Role Phone Tiff Cristina MD Primary Care Provider [phone] Social History Tobacco Use Types Packs/Day Years Used Date Smoking Tobacco: Never Assessed Comments Unknown Sex and Gender Information Value Date Recorded Sex Assigned at Not on file Legal Sex Female 5:35 PM CDT Gender Identity Not on file Sexual Orientation Not on file Plan of Treatment Health Maintenance Due Date Last Done Comments Colorectal Cancer Screening Colonoscopy (10 Years) 1958 Hepatitis C 1976 DTaP, Tdap and Td Vaccines ( 1 - Tdap) 1977 Mammogram Screening 1998 Pneumococcal Vaccine: 50+ Ye ars (1 of 1 - PCV) 2008 Zoster Vaccines (1 of 2) 2008 Dexa Scan (General) 12/24/2023 COVID-19 Vaccine (2023-2 5 season) 2024 RSV Immunization or 60+ Years (1 - 1-dose 75+ series) 2033 Meningococcal B Vaccine Aged Out No l onger eligible based on patient's age to complete this topic Meningococcal Vaccine Aged Out No inderjit jessica eligible based on patient's age to complete this topic RSV Immunizations Under 20 Months Aged Out No longer eligible based on patient's age to complete this topic Insurance [employer] Care Teams Flower Grader Relationship Specialty Start Date End Date Tiff Cristina MD [address] [place] [address] PCP - General INTERNAL MEDICINE 04/04/21
--- OUTSIDE RECORDS SUMMARY | 2025-01-10 08:47 | XMS_ITS | Encounter Summary ---
Author Organization [facility] Address [address] [place] [address] Care Team Providers Care Process Excellence Manager Name Role Phone Gloria Alana Messina APRN-SUBWAY CAR REPAIRER Primary Care Provider Reason for Visit * Reason Onset Date Comments Consultation 12/31/2021 Encounter Details Date Type Department Care Team (Late st Contact Info) Description 12/31/2021 Telephone [facility] [address] [place] [address] Daisy Espinal MD [address] [address] Consultation Social History Tobacco Use Types Packs/Day Years Used Date Smoking Tobacco: Never Smokeless Tobacco: Never Alcohol Use Standard Drinks/Week Comments Not Currently 0 (1 standard drink = 0.6 oz pur e alcohol) Comments No Sex and Gender Information Value Date Recorded Sex Assigned at Not on file 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 Per pt she spoke to hydrator operator in [facility] and they told her to reach out to Dr. Espinal. Per pt she feels like something is in her vaginal area and this is becoming painful when having sex and working out. Pt says she is able to feel what feels like extra tissue, does not feel like this is a lubrication issue. Pt has colpo on 12/26. RN inqiuiring if this is new since last appt. Pt states this has been an issue prior to colpo but she didn't bring up. RN offered appt on 01/05 and on 01/[address] Espinal. Pt declined stating will need to see if she can request off work. RN gave patient office number with nurse line. Pt will call back to discuss scheduling. Pt states she will call after Friday 01/05. * Telephone Encounter - Elodia Mcghee - 12/31/2021 2:09 PM CDT Pt was instructed to speak with hydrator operator before scheduling an appt with another hydrator operator in [place]. documented in this encounter Plan of Treatment Not on file documented as of this encounter Visit Diagnoses Not on filedocumented in this encounter Care Teams Process Excellence Manager Relationship Specialty Start Date End Date Alana Castro APRN-SUBWAY CAR REPAIRER [address] [place] [id number] PCP - General 12/26/21 documented as of this encounter
--- OUTSIDE RECORDS SUMMARY | 2025-01-10 08:48 | XMS_ITS | Data Portability ---
Author Organization [place] - [facility], Main Office Address [address] [place] [id number] Care Team Providers Care Online Communications Specialist Name Role Phone MARCOS BELLA Primary Care Provider [phone] Assessment Encounter Date Assessment Date Assessment LastModified by Organization Details LastModified Time 12/16/2023 12/16/2023 62 yo F with - WELL ADULT VISIT - PRE-DM, improved - HLD - CHRONIC CONSTIPATION - LUMBAR SPINAL STENOSIS - LUMBAR DISC PROLAPSES - CHRONIC LOW BACK PAIN - DDD L-SPINE - S/P FALL (07/20/22) - OSTEOPENIA - KYPHOSIS - HISTORY OF GDM HbA1c: 6.1(12/16/22) - 6.0(06/03/23) - 5.7(09/13/23) Annual labs: 12/16/22. X-ray C,T,L spine: 07/20/22. MRI L-spine wo: 05/29/22. X-ray L-spine: 11/22/21. Annual labs: 10/30/21. D/w pt in detail about her conditions, recent labs & imagines and further plan of care. Will do routine labs. Explained about different options for her. Advised pt to refer to Spine/Pain clinic; but pt declined. Advised to start on Gabapentin/Lyri ca; but pt declined. Meds as directed. Cont heat pack as directed prn. Diet and exercise explained. Fall risks precautions explained. Advised pt to avoid any strenuous activities. Cont f/u with Surgical Nurse Practitioner as per schedule. Cont f/u with city as per schedule. Pt has done PT in the past. HM: WWE - 11/24/22, normal. Cont f/u with VARNISH FILTERER/Gyne as per schedule. Mammo - 12/16/22, normal. Ordered. Colonoscopy - Never. Pt declined. Cologuard done on 11/04/21 - neg. DEXA - 10/30/21, Osteopenia ++. Flu - 06/10/23. Tdap, Pneumo, Shingrix - At HD. F/u in 2-3 weeks. Annual labs in 12/29. [email or web address] Not available 12/16/2023 11:50:34 01/04/2024 01/04/2024 63 yo F with - HYPERCALEMIA, new - PRE-DM, improved - HLD - CHRONIC CONSTIPATION - LUMBAR SPINAL STENOSIS - LUMBAR DISC PROLAPSES - CHRONIC LOW BACK PAIN - DDD L-SPINE - S/P FALL (07/20/22) - OSTEOPENIA - KYPHOSIS - HISTORY OF GDM HbA1c: 6.1(12/16/22) - 6.0(06/03/23) - 5.7(09/13/23) - 6.0(12/16/23) Annual labs: 12/16/23. Annual labs: 12/16/22. X-ray C,T,L spine: 07/20/22. MRI L-spine wo: 05/29/22. X-ray L-spine: 11/22/21. Annual labs: 10/30/21. D/w pt in detail about her conditions, recent labs & imagines and further plan of care. Explained about different options for her. Advised pt to refer to Spine/Pain clinic; but pt declined. Advised to start on Gabapentin/Lyri ca; but pt declined. Meds as directed. Cont heat pack as directed prn. Diet and exercise explained. Fall risks precautions explained. Advised pt to avoid any strenuous activities. Cont f/u with Surgical Nurse Practitioner as per schedule. Cont f/u with city as per schedule. Pt has done PT in the past. HM: WWE - 11/24/22, normal. Cont f/u with VARNISH FILTERER/Gyne as per schedule. Mammo - 12/20/23, normal. Colonoscopy - Never. Pt declined. Cologuard done on 11/04/21 - neg. DEXA - 10/30/21, Osteopenia ++. Pt gets with her Gyne. Flu - 06/10/23. Tdap, Pneumo, Shingrix - At HD. F/u in 3 months. A1c, Ca, PTH in 03/29. Annual labs in 12/29. [email or web address] Not available 01/04/2024 13:01:45 04/04/2024 04/04/2024 63 yo F with - HYPERCALEMIA, new - PRE-DM, improved - HLD - CHRONIC CONSTIPATION - LUMBAR SPINAL STENOSIS - LUMBAR DISC PROLAPSES - CHRONIC LOW BACK PAIN - DDD L-SPINE - S/P FALL (07/20/22) - OSTEOPENIA - KYPHOSIS - HISTORY OF GDM HbA1c: 6.1(12/16/22) - 6.0(06/03/23) - 5.7(09/13/23) - 6.0(12/16/23) - 5.9(03/20/24) Annual labs: 12/16/23. Annual labs: 12/16/22. X-ray C,T,L spine: 07/20/22. MRI L-spine wo: 05/29/22. X-ray L-spine: 11/22/21. Annual labs: 10/30/21. D/w pt in detail about her conditions, recent labs & imagines and further plan of care. Explained about different options for her. Pt declined for any other med at this time. Advised pt to refer to Spine/Pain clinic; but pt declined. Advised to start on Gabapentin/Lyri ca; but pt declined. Meds as directed. Good liquid and fiber intake explained. Cont heat pack as directed prn. Diet and exercise explained. Fall risks precautions explained. Advised pt to avoid any strenuous activities. Cont f/u with Surgical Nurse Practitioner as per schedule. Cont f/u with [facility] as per schedule. Pt has done PT in the past. Offered to refer to Endo; but pt declined. Pt got s/e from Metformin. HM: WWE - 11/24/22, normal. Cont f/u with VARNISH FILTERER/Gyne as per schedule. Mammo - 12/20/23, normal. Colonoscopy - Never. Pt declined. Cologuard done on 11/04/21 - neg. DEXA - 01/04/24, Osteopenia ++. Pt gets with her Gyne. Flu - 06/10/23. Tdap, Pneumo, Shingrix - At HD. F/u in 3-4 months. A1c, Ca, PTH before next visit. Annual labs in 12/29. [email or web address] Not available 04/04/2024 10:39:28 Plan of Treatment Reminders Order Date Submit Date Provider Last Modified By Organization Details Last Modified Time Details Appointments None recorded. Lab PTH (parathyroi d hormone), intact + calcium, serum or plasma 2023 [email or web address] [id number] [facility] (Lab), [address] [place], [address], 4 08:25:25 glycohemogl obin, total, blood 2023 [facility] (Lab), [address] [place], [address], 4 13:17:35 PTH (parathyroi d hormone), intact + calcium, serum or plasma 2023 [email or web address] [facility] (Lab), [address] [place], [address], 4 08:02:42 glycohemogl obin, total, blood 2023 [email or web address] [facility] (Lab), [address] [place], [address], 4 08:20:35 PTH (parathyroi d hormone), intact, serum or plasma 2023 [facility] (Lab), [address] [place], [address], 4 10:04:58 glycohemogl obin, total, blood 2023 [facility] (Lab), [address] [place], [address], 4 12:37:44 Pap test, slide(s), cervical 2023 024 [facility] (Lab), [address] [place], [address], 4 08:15:38 vitamin B12 + folate, serum or blood [address] (Lab), [address] [place], [address], 4 11:01:27 magnesium, serum or plasma 2023 024 [facility] (Lab), [address] [place], [address], 4 21:10:35 glycohemogl obin, total, blood 2023 024 [facility] (Lab), [address] [place], [address], 4 22:00:18 vitamin D, 25-hydroxy, total, serum [address] (Lab), [address] [place], [address], 4 11:01:27 CBC w/ auto diff 2023 024 [facility] (Lab), [address] [place], [address], 4 20:05:20 CMP, serum or plasma 2023 024 [facility] (Lab), [address] [place], [address], 4 21:10:25 lipid panel, serum 2023 024 [facility] (Lab), [address] [place], [address], 4 21:10:30 TSH, serum, reflex free T4 2023 024 [email or web address] [facility] (Lab), [address] [place], [address], 4 11:01:27 urinalysis complete, reflex culture 2023 024 [facility] (Lab), [address] [place], [address], 4 22:35:01 Referral None recorded. Procedures None recorded. Surgeries None recorded. Imaging DEXA 2023 024 [facility] ([facility]), [address] [place], [address], 4 10:40:05 MAMMO, screening, bilateral 2023 024 [email or web address] 256 [facility] ([facility]), [address] [place], [address], 4 10:13:18 Medication Orders docusate sodium 100 mg capsule 2023 024 [facility] #10391, [address] [place], [place], [id number], 4 10:29:51 polyethylen e glycol 3350 17 gram/dose oral powder 2023 024 [facility] #56605, [address] [place], [place], [id number], 4 10:29:53 cyclobenzap rine 10 mg tablet 2023 024 [facility] #50590, [address] [place], [place], [id number], 4 10:29:55 meloxicam 7.5 mg tablet 2023 [facility] #02900, [address] [place], [place], [id number], 4 10:29:51 lidocaine 5 % topical patch 2023 [email or web address] 477 [facility] #86698, [address] [place], [place], [id number], 14:55:48 Calcium 600 + D(3) 600 mg-10 mcg (400 unit) tablet 2023 [facility] #66189, [address] [place], [place], [id number], 4 10:29:54 docusate sodium 100 mg capsule 2023 [facility] #77686, [address] [place], [place], [id number], 4 12:58:15 polyethylen e glycol 3350 17 gram/dose oral powder 2023 [facility] #43140, [address] [place], [place], [id number], 4 12:58:12 cyclobenzap rine 10 mg tablet 2023 [facility] #77176, [address] [place], [place], [id number], 4 12:58:13 meloxicam 7.5 mg tablet 2023 [facility] #[id number] [place], [place], [id number], 4 12:58:14 lidocaine 5 % topical patch [email or web address] [place] [address] [facility] #62951, [address] [place], [place], [id number], 4 14:55:48 metformin ER 500 mg tablet,exte nded release 24 hr [address] [facility] #75751, [address] [place], [place], [id number], 4 14:55:58 Calcium 600 + D(3) 600 mg-10 mcg (400 unit) tablet 2023 [facility] #86048, [address] [place], [place], [id number], 4 12:58:11 meloxicam 7.5 mg tablet 2023 024 [facility] #71227, [address] [place], [place], [id number], 4 11:32:21 lidocaine 5 % topical patch [address] [facility] #27607, [address] [place], [place], [id number], 4 14:55:48 cyclobenzap rine 10 mg tablet 2023 024 [facility] #91206, [address] [place], [place], [id number], 4 11:32:20 metformin ER 500 mg tablet,exte nded release 24 hr [facility]23 [address] [facility] [id number] [place], [place], [id number], 4 14:55:58 Calcium 600 + D(3) 600 mg-10 mcg (400 unit) tablet 2023 [facility] #37327, [address] [place], [place], [id number], 4 11:32:22 docusate sodium 100 mg capsule 2023 [facility] #66282, [address] [place], [place], [id number], 4 11:32:23 polyethylen e glycol 3350 17 gram/dose oral powder 2023 [facility] #31773, [address] [place], [place], [id number], 11:32:24 Patient TargetsNo targets recorded. Patient InstructionsNo instructions recorded. Reason for Referral None Reported. Results Created Date Observation Date Name Description Value Unit Range Abnormal Flag Note LastModifiedBy Organization Detail LastModifiedTime 12/16/1912/16/2023 CBC/C OMPLE TE BLD COUNT W/DIF F white blood cells 6.7 x10'3 /uL 4.2-10 .8 Not Available [facility] (Lab) [address] [place], [address], 12/16/2023 20:05:19 12/16/19 24 12/16/2023 CBC/C OMPLE TE BLD COUNT W/DIF F red blood cells 4.80 x10'6 /uL 3.80-5 .20 Not Available [facility] (Lab) [address] [place], [address], 12/16/2023 20:05:19 12/16/19 24 12/16/2023 CBC/C OMPLE TE BLD COUNT W/DIF F hemoglobin 14.6 g/dL 12.0-1 5.6 Not Available [facility] (Lab) [address] [place], [address], 12/16/2023 20:05:19 12/16/19 24 12/16/2023 CBC/C OMPLE TE BLD COUNT W/DIF F hematocrit 44.6 % 35.7-4 5.7 Not Available [facility] (Lab) [address] [place], [address], 12/16/2023 20:05:19 12/16/19 24 12/16/2023 CBC/C OMPLE TE BLD COUNT W/DIF F mean red cell volume 92.9 fL 82.0-9 9.0 Not Available [facility] (Lab) [address] [place], [address], 12/16/2023 20:05:19 12/16/19 24 12/16/2023 CBC/C OMPLE TE BLD COUNT W/DIF F mean red cell hemoglobin 30.4 pg 27.0-3 3.0 Not Available [facility] (Lab) [address] [place], [address], 12/16/2023 20:05:19 12/16/19 24 12/16/2023 CBC/C OMPLE TE BLD COUNT W/DIF F mean RBC HGB concentratio n 32.7 g/dL 31.0-3 6.0 Not Available [facility] (Lab) [address] [place], [address], 12/16/2023 20:05:19 12/16/19 24 12/16/2023 CBC/C OMPLE TE BLD COUNT W/DIF F red cell distribution width 12.4 % 11.8-1 5.5 Not Available [facility] (Lab) [address] [place], [address], 12/16/2023 20:05:19 12/16/19 24 12/16/2023 CBC/C OMPLE TE BLD COUNT W/DIF F platelets 259 x10'3 /uL 150-40 0 Not Available [facility] (Lab) [address] [place], [address], 12/16/2023 20:05:19 12/16/19 24 12/16/2023 CBC/C OMPLE TE BLD COUNT W/DIF F mean platelet volume 11.5 fL 9.0-12 .4 Not Available [facility] (Lab) [address] [place], [address], 12/16/2023 20:05:19 12/16/19 24 12/16/2023 CBC/C OMPLE TE BLD COUNT W/DIF F neutrophils 50.1 % 39.0-7 2.0 Not Available [facility] (Lab) [address] [place], [address], 12/16/2023 20:05:19 12/16/19 24 12/16/2023 CBC/C OMPLE TE BLD COUNT W/DIF F lymphocytes 35.3 % 16.0-4 7.0 Not Available [facility] (Lab) [address] [place], [address], 12/16/2023 20:05:19 12/16/19 24 12/16/2023 CBC/C OMPLE TE BLD COUNT W/DIF F monocytes 7.4 % 5.0-12 .0 Not Available [facility] (Lab) [address] [place], [address], 12/16/2023 20:05:19 12/16/19 24 12/16/2023 CBC/C OMPLE TE BLD COUNT W/DIF F eosinophils 6.4 % 1.0-7. 0 Not Available [facility] (Lab) [address] [place], [address], 12/16/2023 20:05:19 12/16/19 24 12/16/2023 CBC/C OMPLE TE BLD COUNT W/DIF F basophils 0.7 % 0.0-2. 0 Not Available [facility] (Lab) [address] [place], [address], 12/16/2023 20:05:19 12/16/19 24 12/16/2023 CBC/C OMPLE TE BLD COUNT W/DIF F immature granulocytes 0.1 % 0.00-0 .50 Not Available [facility] (Lab) [address] [place], [address], 12/16/2023 20:05:19 12/16/19 24 12/16/2023 CBC/C OMPLE TE BLD COUNT W/DIF F neutrophils, absolute count 3.36 x10'3 /uL 1.5-8. 0 Not Available [facility] (Lab) [address] [place], [address], 12/16/2023 20:05:19 12/16/19 24 12/16/2023 CBC/C OMPLE TE BLD COUNT W/DIF F lymphocytes, absolute count 2.37 x10'3 /uL 1.07-3 .43 Not Available [facility] (Lab) [address] [place], [address], 12/16/2023 20:05:19 12/16/19 24 12/16/2023 CBC/C OMPLE TE BLD COUNT W/DIF F monocytes, absolute count 0.50 x10'3 /uL 0.29-0 .99 Not Available [facility] (Lab) [address] [place], [address], 12/16/2023 20:05:19 12/16/19 24 12/16/2023 CBC/C OMPLE TE BLD COUNT W/DIF F eosinophils, absolute count 0.43 x10'3 /uL 0.02-0 .53 Not Available [facility] (Lab) [address] [place], [address], 12/16/2023 20:05:19 12/16/19 24 12/16/2023 CBC/C OMPLE TE BLD COUNT W/DIF F basophils, absolute count 0.05 x10'3 /uL 0.01-0 .08 Not Available [facility] (Lab) [address] [place], [address], 12/16/2023 20:05:19 12/16/19 24 12/16/2023 CBC/C OMPLE TE BLD COUNT W/DIF F immature granulocytes ,absolute 0.01 x10'3 /uL 0.00-0 .05 Not Available [facility] (Lab) [address] [place], [address], 12/16/2023 20:05:19 12/16/19 24 12/16/2023 CBC/C OMPLE TE BLD COUNT W/DIF F nucleated red blood cells 0.0 % -0 Not Available [facility] (Lab) [address] [place], [address], 12/16/2023 20:05:19 12/16/19 24 12/16/2023 CBC/C OMPLE TE BLD COUNT W/DIF F NRBC# 0.00 x10'3 /uL Not Available [facility] (Lab) [address] [place], [address], 12/16/2023 20:05:19 12/16/19 24 12/16/2023 URINA LYSIS COMPL ETE/I RIS W/RFX color LIGHT- YELLOW Not Available [facility] (Lab) [address] [place], [address], 12/16/2023 20:33:08 12/16/19 24 12/16/2023 URINA LYSIS COMPL ETE/I RIS W/RFX appear EXTRA TURBID abnormal Not Available [facility] (Lab) [address] [place], [address], 12/16/2023 20:33:08 12/16/19 24 12/16/2023 URINA LYSIS COMPL ETE/I RIS W/RFX specific gravity 1.014 1.001- 1.030 Not Available [facility] (Lab) [address] [place], [address], 12/16/2023 20:33:08 12/16/19 24 12/16/2023 URINA LYSIS COMPL ETE/I RIS W/RFX pH 7.0 pH_un its 5.0-9. 0 Not Available [facility] (Lab) [address] [place], [address], 12/16/2023 20:33:08 12/16/19 24 12/16/2023 URINA LYSIS COMPL ETE/I RIS W/RFX leukocytes NEGATI VE hilda/u L negati ve- Not Available [facility] (Lab) [address] [place], [address], 12/16/2023 20:33:08 12/16/19 24 12/16/2023 URINA LYSIS COMPL ETE/I RIS W/RFX nitrite 1+ negati ve- abnormal Not Available [facility] (Lab) [address] [place], [address], 12/16/2023 20:33:08 12/16/19 24 12/16/2023 URINA LYSIS COMPL ETE/I RIS W/RFX protein NEGATI VE mg/dL negati ve- Not Available [facility] (Lab) [address] [place], [address], 12/16/2023 20:33:08 12/16/19 24 12/16/2023 URINA LYSIS COMPL ETE/I RIS W/RFX glucose NORMAL mg/dL normal - Not Available [facility] (Lab) [address] [place], [address], 12/16/2023 20:33:08 12/16/19 24 12/16/2023 URINA LYSIS COMPL ETE/I RIS W/RFX ketones NEGATI VE mg/dL negati ve- Not Available [facility] (Lab) [address] [place], [address], 12/16/2023 20:33:08 12/16/19 24 12/16/2023 URINA LYSIS COMPL ETE/I RIS W/RFX urobilinogen NORMAL mg/dL normal - Not Available [facility] (Lab) [address] [place], [address], 12/16/2023 20:33:08 12/16/19 24 12/16/2023 URINA LYSIS COMPL ETE/I RIS W/RFX bilirubin NEGATI VE mg/dL negati ve- Not Available [facility] (Lab) [address] [place], [address], 12/16/2023 20:33:08 12/16/19 24 12/16/2023 URINA LYSIS COMPL ETE/I RIS W/RFX blood NEGATI VE mg/dL negati ve- Not Available [facility]Lab) [address] [facility] [place], [address], 12/16/2023 20:33:08 12/16/19 24 12/16/2023 URINA LYSIS COMPL ETE/I RIS W/RFX white blood cells 0-8 /i??h pfi?? 0-8 Not Available [facility] (Lab) [address] [place], [address], 12/16/2023 20:33:08 12/16/19 24 12/16/2023 URINA LYSIS COMPL ETE/I RIS W/RFX red blood cells NONE /i??h pfi?? 0-4 Not Available [facility] (Lab) [address] [place], [address], 12/16/2023 20:33:08 12/16/19 24 12/16/2023 URINA LYSIS COMPL ETE/I RIS W/RFX bacteria OCCASI ONAL abnormal Not Available [facility] (Lab) [address] [place], [address], 12/16/2023 20:33:08 12/16/19 24 12/16/2023 URINA LYSIS COMPL ETE/I RIS W/RFX mucous OCCASI ONAL /i??l pfi?? abnormal Not Available [facility] (Lab) [address] [place], [address], 12/16/2023 20:33:08 12/16/19 24 12/16/2023 URINA LYSIS COMPL ETE/I RIS W/RFX squamous epithelial OCCASI ONAL /i??l pfi?? abnormal Not Available [facility] (Lab) [address] [place], [address], 12/16/2023 20:33:08 12/16/19 24 12/16/2023 URINA LYSIS COMPL ETE/I RIS W/RFX amorphous crystal MODERA TE /i??h pfi?? abnormal Not Available [facility] (Lab) [address] [place], [address], 12/16/2023 20:33:08 12/16/19 24 12/16/2023 COMPR EHENS CATHY METAB OLIC PANEL sodium 139 mmol/ L 137-14 5 Not Available [facility] (Lab) [address] [place], [address], 12/16/2023 21:10:25 12/16/19 24 12/16/2023 COMPR EHENS CATHY METAB OLIC PANEL potassium 4.1 mmol/ L 3.5-5. 1 Not Available [facility] (Lab) [address] [place], [address], 12/16/2023 21:10:25 12/16/19 24 12/16/2023 COMPR EHENS CATHY METAB OLIC PANEL chloride 103 mmol/ L 98-107 Not Available [facility] (Lab) [address] [place], [address], 12/16/2023 21:10:25 12/16/19 24 12/16/2023 COMPR EHENS CATHY METAB OLIC PANEL carbon dioxide 32 mmol/ L 22-30 high Not Available [facility] (Lab) [address] [place], [address], 12/16/2023 21:10:25 12/16/19 24 12/16/2023 COMPR EHENS CATHY METAB OLIC PANEL anion gap 8.1 mmol/ L 14-22 low Not Available [facility] (Lab) [address] [place], [address], 12/16/2023 21:10:25 12/16/19 24 12/16/2023 COMPR EHENS CATHY METAB OLIC PANEL glucose 89 mg/dL 70-99 Not Available [facility] (Lab) [address] [place], [address], 12/16/2023 21:10:25 12/16/19 24 12/16/2023 COMPR EHENS CATHY METAB OLIC PANEL BUN 19 mg/dL 8-19 Not Available [facility] (Lab) [address] [place], [address], 12/16/2023 21:10:25 12/16/19 24 12/16/2023 COMPR EHENS CATHY METAB OLIC PANEL creatinine 0.58 mg/dL 0.66-1 .25 low Not Available [facility] (Lab) [address] [place], [address], 12/16/2023 21:10:25 12/16/19 24 12/16/2023 COMPR EHENS CATHY METAB OLIC PANEL GFR >60 Refer ence Range : [facility] GFR Healt hy Adult : >60 mL/mi n/1.7 3 m2 Chron ic Kidne y Disea se: 15-60 mL/mi n/1.7 3 m2 Kidne y Failu re: <15/m L/min /1.73 m2 www.n iddk. nih.g ov The MDRD study equat ion has not been valid ated in child gladys <18 years of age; pregn ant women ; the elder ly >85 years of age; or in some racia l or ethni c subgr oups, such as Hismilind nics. Outsi de the valid ated lilibeth eters , estim ated GFR is less accur ate, requi ring clini ute judgm ent on a case- by-ca se basis . Clini ute inter preta tion for other races and ages must be made by the clini theron. The MDRD study equat ion has not been valid ated for the evalu ation of serum creat inine relat ed to nutri anya l statu s or medic ation usage . For perso ns <18 years of age, a pedia tric GFR calcu lator is avail able on the [facility] websi te: [email or web address] :[email or web address] cee.layne tristan.o rg/pr ofess ional s/kdo qi/gf r_cal culat or Not Available [facility] (Lab) [address] [place], [address], 12/16/2023 21:10:25 12/16/19 24 12/16/2023 COMPR EHENS CATHY METAB OLIC PANEL alkaline phosphatase 76 U/L 38-126 Not Available [facility] (Lab) [address] [place], [address], 12/16/2023 21:10:25 12/16/19 24 12/16/2023 COMPR EHENS CATHY METAB OLIC PANEL alanine aminotransfe rase 25 U/L 0-35 Not Available [facility] (Lab) [address] [place], [address], 12/16/2023 21:10:25 12/16/19 24 12/16/2023 COMPR EHENS CATHY METAB OLIC PANEL aspartate aminotransfe rase 40 U/L 15-37 high Not Available [facility] (Lab) [address] [place], [address], 12/16/2023 21:10:25 12/16/19 24 12/16/2023 COMPR EHENS CATHY METAB OLIC PANEL bilirubin, total 0.60 mg/dL 0.20-1 .30 Not Available [facility] (Lab) [address] [place], [address], 12/16/2023 21:10:25 12/16/19 24 12/16/2023 COMPR EHENS CATHY METAB OLIC PANEL calcium 10.4 mg/dL 8.4-10 .2 high Not Available [facility] (Lab) [address] [place], [address], 12/16/2023 21:10:25 12/16/19 24 12/16/2023 COMPR EHENS CATHY METAB OLIC PANEL total protein 7.3 g/dL 6.3-8. 2 Not Available [facility] (Lab) [address] [place], [address], 12/16/2023 21:10:25 12/16/19 24 12/16/2023 COMPR EHENS CATHY METAB OLIC PANEL albumin 4.5 g/dL 3.0-4. 4 high Not Available [facility] (Lab) [address] [place], [address], 12/16/2023 21:10:25 12/16/19 24 12/16/2023 COMPR EHENS CATHY METAB OLIC PANEL globulin 2.8 g/dL 2.6-4. 2 Not Available [facility] (Lab) [address] [place], [address], 12/16/2023 21:10:25 12/16/19 24 12/16/2023 COMPR EHENS CATHY METAB OLIC PANEL A/G ratio 1.6 ratio 1.0-2. 0 Not Available [facility] (Lab) [address] [place], [address], 12/16/2023 21:10:25 12/16/19 24 12/16/2023 LIPID PANEL cholesterol 150 mg/dL 140-19 9 [facility] MILO NSUS RECOM MENDA TION FOR DAVID STERO L: ADULT CHILD LOW RISK: <200 <170 BORDE RLINE : <200- 239 ----- HIGH RISK: >240 >200 Not Available [facility] (Lab) [address] [place], [address], 12/16/2023 21:10:30 12/16/19 24 12/16/2023 LIPID PANEL triglyceride s 93 mg/dL 0-150 NIH MILO NSUS REPOR T RECOM MENDA TION FOR TRIGL YCERI ARIEL: ADULT CHILD LOW RISK: <150 ----- BODER LINE: 150-1 99 ----- HIGH RISK: >200 ----- Not Available [facility] (Lab) [address] [place], [address], 12/16/2023 21:10:30 12/16/19 24 12/16/2023 LIPID PANEL HDL cholesterol 67 mg/dL 40- Not Available [facility] (Lab) [address] [place], [address], 12/16/2023 21:10:30 12/16/19 24 12/16/2023 LIPID PANEL LDL cholesterol, calculated 64 mg/dL 0-130 NIH MILO NSUS REPOR T RECOM MENDA TIONS FOR LDL: ADULT CHILD LOW RISK <130 <110 (OPTI MAL LDL) <100 ----- BORDE RLINE : 130-1 59 ----- HIGH RISK: >160 >130 A TRIGL YCERI DE RESUL T >400 INVAL IDATE S THE CALCU LATIO N FOR LDL FRACT IONAT ION - THE LDL RESUL T WILL NOT BE REPOR LINO. Not Available [facility] (Lab) [address] [place], [address], 12/16/2023 21:10:30 12/16/19 24 12/16/2023 MAGNE SIUM magnesium 2.0 mg/dL 1.6-2. 3 Not Available [facility] (Lab) [address] [place], [address], 12/16/2023 21:10:35 12/16/19 24 12/16/2023 VITAM IN D 25-HY DROXY vd25oh 42.8 NG/mL 30-100 Vitam in D Statu s: Defic ient: <20 ng/mL Insuf ficie nt: 20-29 ng/mL Suffi cient : 30-10 0 ng/mL Not Available [facility] (Lab) [address] [place], [address], 12/16/2023 21:10:55 12/16/19 24 12/16/2023 TSH W/REF ESPINOZA FT4 TSH with reflex free T4 1.770 uIU/m L 0.465- 4.680 Not Available [facility] (Lab) [address] [place], [address], 12/16/2023 21:11:16 12/16/19 24 12/16/2023 VITAM IN B12 (AMOS SHRUTI ) vb12 359 pg/mL 239-93 1 Not Available [facility] (Lab) [address] [place], [address], 12/16/2023 21:45:53 12/16/19 24 12/16/2023 FOLAT E, SERUM /PLAS MA folate 13.4 NG/mL 2.76-2 0.0 Not Available [facility] (Lab) [address] [place], [address], 12/16/2023 21:45:58 12/16/19 24 12/16/2023 HEMOG LOBIN A1C HA1C 6.0 % 4.0-6. 0 Diabe reema Scree esdras Crite kirby: <5.7% Consi stent with absen ce of diabe reema 5.7-6 .4% Consi stent with incre ased risk for diabe reema (pred iabet es) >OR=6 .5% Consi stent with diabe reema REFER ENCE: Diabe reema Care 2015, 39(Ernandez ppl.1 ):s13 -s22 Not Available [facility] (Lab) [address] [place], [address], 12/16/2023 22:00:18 03/20/20 24 03/20/2024 PARAT HY.HO RM(PT H)INT ACT-W /O CA intact parathyroid hormone 41.6 pg/mL 24.0-7 8.0 Pleas e note new refer ence range effec tive 10/02 . Not Available [facility] (Lab) [address] [place], [address], 03/20/2024 10:04:58 03/20/20 24 03/20/2024 HEMOG LOBIN A1C HA1C 5.9 % 4.0-6. 0 Diabe reema Scree esdras Crite kirby: <5.7% Consi stent with absen ce of diabe reema 5.7-6 .4% Consi stent with incre ased risk for diabe reema (pred iabet es) >OR=6 .5% Consi stent with diabe reema REFER ENCE: Diabe reema Care 39(Ernandez ppl.1 ):s13 -s22 Not Available [facility] (Lab) [address] [place], [address], 03/20/2024 12:37:43 06/23/20 24 06/23/2024 PARAT HYROI D HORM (PTH) INT.W /CA intact parathyroid hormone 11.1 pg/mL 24-78 low Not Available [facility] (Lab) [address] [place], [address], 06/23/2024 12:57:00 06/23/20 24 06/23/2024 PARAT HYROI D HORM (PTH) INT.W /CA calcium 9.8 mg/dL 8.4-10 .2 Not Available [facility] (Lab) [address] [place], [address], 06/23/2024 12:57:00 06/23/20 24 06/23/2024 HEMOG LOBIN A1C HA1C 6.1 % 4.0-6. 0 high Diabe reema Rozina dewitt Crite kirby: <5.7% Consi stent with absen ce of diabe reema 5.7-6 .4% Consi stent with incre ased risk for diabe reema (pred iabet es) >OR=6 .5% Consi stent with diabe reema REFER ENCE: Diabe reema Care 2016, 39(Ernandez ppl.1 ):s13 -s22 Not Available [facility] (Lab) [address] [facility], [place], [address], 06/23/2024 13:17:35 12/20/19 24 12/20/2023 scresarah dewitt breas t jody, bilat [facility] [address] [place] [address] Patien t Name: DORI WOODS Access ion #: [id number] Sex: F : 1960 6 Dictat ed By: Karlene Gambino Attend ing Physic tito: BRIAN BELLA Orderi ng Physic tito: BRIAN BELLA Exam Date: 2023 12:13 PM Exam Name: MG SCRN BREAST JODY BILAT Admitt ing Diagno sis(es ): SCREEN ING MAMMOG DECLAN WITH TOMOSY NTHESI S: REASON FOR EXAM: SCREEN ING DARCY COMPAR MELVA: 23, 10/30/ 022 TECHNI QUE: Bilate ral CC and MLO views obtain ed. Images were obtain ed using a Digita l Tomosy nthesi s Unit. Standa rd 2D and 3D Tomosy nthesi s images were review ed. FINDIN GS: BREAST COMPOS ITION: The bilate ral breast s are hetero geneou sly dense, which may obscur e small masses . In the right breast , no asymme trical parenc hymal patter n, jackeline ectura l distor tion, pleomo rphic microc alcifi cation s or masses . In the left breast , no asymme trical parenc hymal patter n, jackeline ectura l distor tion, pleomo rphic microc alcifi cation s or masses . IMPRES KISHORE: No findin gs of malign daily. Recomm end annual mammog declan. BIRADS : 1 - Negati ve Electr onical ly Signed by: Karlene Gambino at 2023 14:59: 33 PM Page 1 [email or web address] [facility] (Imaging) [address] [place], [address], 12/24/2023 16:50:19 01/04/20 24 01/04/2024 DEXA No observ ation record ed. [email or web address] [facility] [address] [place], [address], 04/04/2024 10:25:48 Result Notes None recorded. Problems Name Problem SNOMED Code Status Onset Date Resolution Date Notes Provider Name and Address Organization Details Recorded Time Prolapsed lumbar intervertebra l disc 690531685 Active 2021 Not Available [facility] 3 02:51:31 Stenosis of spinal canal due to intervertebra l disc 613166347 Active 2021 Not Available [facility] 3 02:51:31 Screening mammography Active 2021 Not Available [facility] 3 02:51:32 Cystocele 420009101 Active 2021 Not Available [facility] 3 02:51:32 Degeneration of lumbar intervertebra l disc 22206433 Active 2021 Not Available [facility] 3 02:51:32 Adult health examination Active 2021 Not Available [facility] 3 02:51:32 Screening for malignant neoplasm of colon Active 2021 Not Available [facility] 3 02:51:32 Chronic low back pain 270642374 Active 2021 Not Available [facility] 3 02:51:32 Screening for disorder Active 2021 Not Available [facility] 3 02:51:33 Osteopenia 513320386 Active 2021 Not Available [facility] 3 02:51:33 Onychomycosis of toenails 762695495 Active 2021 Not Available [facility] 3 02:51:33 Kyphosis deformity of spine 082713000 Active 2021 Not Available [facility] 3 02:51:33 Onychomycosis 624425950 Active 2021 Not Available [facility] 3 02:51:33 Abnormal cervical Papanicolaou smear 060417891 Active 2021 Not Available [facility] 3 02:51:33 Past history of gestational diabetes mellitus 503972447 Active 2021 Not Available [facility] 3 02:51:33 Hyperlipidemi a 58645492 Active 2021 Not Available [facility] 3 02:51:34 Prediabetes 659177518 Active 2022 Marcos Bella MD [address], [place] [address], [place], [address] , [employer] 3 11:39:00 Chronic idiopathic constipation 81914602 Active 2023 Marcos Bella MD [address], [place] [address], [place], [address] , [employer] 4 17:50:00 Hypercalcemia 99484038 Active 2023 Marcos Bella MD [address], [place], [address] , [employer] 4 12:57:44 Notes:Some problems listed i n Documents: #[id number], #[id number] could not be added to this patient's chart. Please review these documents and add these problems to the patient's chart manually as needed. Problem Notes None recorded. Procedures Surgical History Date Name Laterality Status Provider Name and Address Organization Details Recorded Time 12/17/19 23 Most Recent Mammogram completed Alana Cox RN [facility] [employer] [facility] 12/22/2023 09:47:58 11/25/19 23 Date of Last Pap Smear completed Alana Cox RN [facility] 12/22/2023 09:47:49 09/06/19 22 Most Recent Bone Density completed Alana Cox RN [facility] [place] [facility] 11/24/2022 08:07:04 09/06/19 22 Date of Last Colonoscopy completed Alana Cox RN [facility] [place] [facility] 11/24/2022 08:07:08 procedure on appendix completed Not Available [facility] 11/04/2022 02:40:06 Imaging Results Imaging Date Name Status LastModified by Organiz ation Details LastModified Time 12/20/2023 screening breast jody, bilat completed [email or web address] [facility] (Imaging) [address] [place], [address], 12/24/2023 16:50:19 01/04/2024 DEXA completed [email or web address] [facility] [address] [place], [address], 04/04/2024 10:25:48 Procedure Notes None recorded. Medical Equipment None Reported. Allergies Allergen ID Allergen Name Allergen Category Reaction Reaction Severity Criticality Documentation Date Start Date Code Code System Note Provider Name and Address Organization Details Recorded Time 4985 chocolate flavor food,medi cation Not available Not available Not available 11/04/2022 64690 UNK Blood in stool and sinus infec tion. Not Available [facility] 3 03:06:00 96524 metformin medicatio n rash moderate Not available 04/04/2024 6809 RxNorm Marcos Bella MD [address], [address], [facility] [place] [facility] 4 10:28:13 Medications Name Sig Start Date Stop Date Status Note LastModified by Organization Details LastModified Time cyclobenz aprine 10 mg tablet TAKE 1 TABLET BY MOUTH EVERY 12 HOURS NEEDED. active Not Available Not Available No t Available latanopro st 0.005 % eye drops INSTILL 1 DROP IN RIGHT EYE EVERY DAY AT BEDTIME active Not Available Not Available No t Available biotin 800 mcg tablet Take by oral route. 2021 active Not Available Not Available Not Avai lable atorvasta tin 10 mg tablet TAKE 1 TABLET BY MOUTH EVERY DAY AT BEDTIME active Not Available Not Available No t Available meloxicam 7.5 mg tablet TAKE 1 TABLET BY MOUTH EVERY 12 HOURS NEEDED 2023 active Not Available Not Available Not Avai lable Vitamin D3 10 mcg (400 unit) tablet Take by oral route. 06/20 completed Not Available Not Available Not Available Gas Relief (simethic one) 80 mg chewable tablet Take by oral route. 2021 active Not Available Not Available Not Avai lable lidocaine 5 % topical patch Apply by topical route for 30 days. active Not Available Not Available No t Available docusate sodium 100 mg capsule Take 1 capsule twice a day by oral route as needed for 90 days. 2023 active Not Available Not Available Not Avai lable polyethyl neida glycol 3350 17 gram/dose oral powder Take 17 g every day by oral route as directed . 2023 active Not Available Not Available Not Avai lable estradiol 0.01% (0.1 mg/gram) vaginal cream INSERT 1 GRAM VAGINALL Y EVERY NIGHT FOR 1 WEEK THEN INSERT 1 GRAM VAGINALL Y 2 TIMES A WEEK THEREAFT ER 06/20 completed Not Available Not Available Not Available metformin ER 500 mg tablet,ex tended release 24 hr Take 1 tablet twice a day by oral route after meals for 90 days. 06/20 completed Not Available Not Available Not Available Asprin Ec Low Dose 81 mg tablet,de layed release Take 1 tablet every day by oral route. 2021 active Not Available Not Available Not Avai lable Vitamin C active Not Available Not Alyssa ilable Not Available Calcium 600 12/21 completed Not Available Not Available Not Available Acidophil us 06/20 completed probioti c Not Available Not Available Not Available Calcium 600 + D(3) 600 mg-10 mcg (400 unit) tablet Take 1 tablet twice a day by oral route after meals for 90 days. 2023 active Not Available Not Available Not Avai lable Stool Softener 100 mg tablet Take 1 tablet every day by oral route. 12/21 completed Not Available Not Available Not Available Complete Multivita min-Sunriver al 12/15 completed Not Available Not Available Not Available Fish Oil 1,000 mg (120 mg-180 mg) capsule Take by oral route. 2021 active Not Available Not Available Not Avai lable Vitals Date Recorded Body height Body mass index (BMI) Body weight Body temperature Heart rate Respiratory rate Oxygen saturation Oxygen saturation in Arterial blood by Pulse oximetry Systolic blood pressure Diastolic blood pressure Provider Name and Address Organization Details Last Updated DateTime 4 162.56 cm 19.8 kg/m2 11370.8 2 g 98 [degF] 76 /min 16 /min 98 % 98 % 126 mm[Hg] 78 mm[Hg] Elias Flores [facility] [place] [facility] 4 11:25:07 Date Recorded Body height Body mass index (BMI) Body weight Body temperature Heart rate Respiratory rate Oxygen saturation Oxygen saturation in Arterial blood by Pulse oximetry Pain severity - 0-10 verbal numeric rating [Score] - Reported Systolic blood pressure Diastolic blood pressure Provider Name and Address Organization Details Last Updated DateTime 4 162.56 cm 19.6 kg/m2 68273.9 8 g 96.7 [degF] 92 /min 20 /min 97 % 97 % 0 142 mm[Hg] 82 mm[Hg] Alana Cox RN [facility] [place] [facility] 4 09:46:18 Date Recorded Body height Body mass index (BMI) Body weight Body temperature Heart rate Respiratory rate Oxygen saturation Oxygen saturation in Arterial blood by Pulse oximetry Systolic blood pressure Diastolic blood pressure Provider Name and Address Organization Details Last Updated DateTime 4 162.56 cm 19.9 kg/m2 44119.0 6 g 98.1 [degF] 90 /min 20 /min 98 % 98 % 136 mm[Hg] 80 mm[Hg] Elias [facility] [place] [facility] 4 12:54:04 Date Recorded Body height Body mass index (BMI) Body weight Body temperature Heart rate Respiratory rate Oxygen saturation Oxygen saturation in Arterial blood by Pulse oximetry Systolic blood pressure Diastolic blood pressure Provider Name and Address Organization Details Last Updated DateTime 4 162.56 cm 19.6 kg/m2 42341.2 3 g 97.9 [degF] 82 /min 16 /min 98 % 98 % 122 mm[Hg] 70 mm[Hg] Elias Flores [facility] [place] [facility] 4 10:23:01 Date Recorded Body height Body mass index (BMI) Body weight Body temperature Heart rate Oxygen saturation Oxygen saturation in Arterial blood by Pulse oximetry Systolic blood pressure Diastolic blood pressure Provider Name and Address Organization Details Last Updated DateTime 4 162.56 cm 19.7 kg/m2 24933.1 2 g 97.4 [degF] 90 /min 98 % 98 % 146 mm[Hg] 84 mm[Hg] Gina Heath RN [facility] [place] [facility] 4 14:53:23 Social History Question Answer Notes LastModified by Organizat ion Details LastModified Time Tobacco Smoking Status Never Smoker Not Available [facility] 11/04/2022 02:31:06 Do You Have An Advance Directive? No Will MIGRATION.[id number] Information not available 11/04/2022 What Is Your Level Of Alcohol Consumption? None MIGRATION.19716 00938 Information not available 11/04/2022 Do You Wear A Helmet When Biking? No MIGRATION.10982 72028 Information not available 11/04/2022 Is Blood Transfusion Acceptable In An Emergency? Yes Information not available 11/24/2022 What Is Your Level Of Caffeine Consumption? Moderate MIGRATION.50567 [id number] Information not available 11/04/2022 What Is Your Code Status? DNR Information not available 11/24/2022 In The 14 Days Before Symptom Onset, Have You Had Close Contact With A Laboratory-confir med COVID-19 While That Case Was Ill? No MIGRATION.29154 19734 Information not available 11/04/2022 In The 14 Days Before Symptom Onset, Have You Had Close Contact With A Person Who Is Under Investigation For COVID-19 While That Person Was Ill? No MIGRATION.22380 80519 Information not available 11/04/2022 What Type Of Diet Are You Following? REGULAR MIGRATION.95953 02622 Information not available 11/04/2022 What Is The Highest Grade Or Level Of School You Have Completed Or The Highest Degree You Have Received? 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 7 Information not available 11/24/2022 Have There Been Any Changes To Your Family Or Social Situation? Yes MIGRATION.61253 12371 Information not available 11/04/2022 What Is The Fluoride Status Of Your Home? Unknown MIGRATION.08755 61872 Information not available 11/04/2022 Are There Any Guns Present In Your Home? No MIGRATION.55218 28995 Information not available 11/04/2022 Do You Use Insect Repellent Routinely? Yes MIGRATION.79561 53022 Information not available 11/04/2022 Where Do You Live? SingleLevelHouse MIGRATION.37348 32114 Information not available 11/04/2022 Do You Have A Medical Power Of Gas Distribution Supervisor? No MIGRATION.88007 91071 Information not available 11/04/2022 How Many Children Do You Have? 2 Information not available 11/24/2022 Do You Have Any Pets? Yes MIGRATION.77739 12338 Information not available 11/04/2022 Do You Use Protection During Sex? No Information not available 11/24/2022 What Is Your Relationship Status? MIGRATION.59091 87546 Information not available 11/04/2022 Do You Use Your Seat Belt Or Car Seat Routinely? Yes MIGRATION.58690 82438 Information not available 11/04/2022 Are You Sexually Active? Yes Information not available 11/24/2022 Do You Have Smoke And Carbon Monoxide Detectors In Your Home? No MIGRATION.55537 94453 Information not available 11/04/2022 Are You Passively Exposed To Smoke? No MIGRATION.24272 50740 Information not available 11/04/2022 Are There Any Smokers In Your House? No MIGRATION.12932 79473 Information not available 11/04/2022 Do You Participate In Social Media? No MIGRATION.37197 15182 Information not available 11/04/2022 What Types Of Sporting Activities Do You Participate In? NA MIGRATION.57536 15778 Information not available 11/04/2022 Do You Feel Stressed (tense, Restless, Nervous, Or Anxious, Or Unable To Sleep At Night)? [id number] MIGRATION.25398 85071 Information not available 11/04/2022 Do You Use Any Illicit Or Recreational Drugs? No MIGRATION.91913 41567 Information not available 11/04/2022 Do You Use Sunscreen Routinely? Yes MIGRATION.11890 92718 Information not available 11/04/2022 Have You Recently Traveled Abroad? No MIGRATION.24982 06679 Information not available 11/04/2022 Are You Currently In School? No MIGRATION.30786 74975 Information not available 11/04/2022 Do You Have Any Dietary Restrictions? No MIGRATION.38908 53258 Information not available 11/04/2022 Do You Or Have You Ever Used Any Other Forms Of Tobacco Or Nicotine? No MIGRATION.84383 06343 Information not available 11/04/2022 Sex: Female Functional Status Question Answer Note LastModified by [employer] ion Details LastModified Time What is your exercise level? Moderate [id number] Information not available 11/04/2022 Mental Status None recorded. Family History Relationship Description Onset Age of this Age Resolved Age Notes LastModified by Organization Details LastModified Time Mother Diabetes mellitus [id number] Not available 11/04/2022 02:40:10 Brother Diabetes mellitus MIGRATION.789 [id number] Not available 11/04/2022 02:40:10 Sister Diabetes mellitus MIGRATION.079 [id number] Not available 11/04/2022 02:40:10 Father Cirrhosis of liver MIGRATION.231 [id number] Not available 11/04/2022 02:40:10 Medical History Condition Response BLINDNESS N RHEUMATIC FEVER N KIDNEY STONES N BLADDER PROBLEMS N MRSA N OTHER # 1 N POLIO N LUNG DISEASE/DISORDER N HISTORY OF DRUG ABUSE N RADIATION / CHEMOTHERAPY N COPD N Other # 2 N BLOOD DISEASES N SURGERY N EAR OR HEARING PROBLEMS N MUMPS N SHINGLES N BOWEL PROBLEMS N FEMALE PROBLEMS / INFECTIONS N DEPRESSION (INCLUDING POST ) N STROKE/TIA N THYROID DISEASE N ULCERS N BENIGN PROSTATIC HYPERPLASIA N MEASLES N CERVICALGIA N HYPOTENSION N TB SKIN TEST N MYOCARDIAL INFARCTION N PARAPELGIA N OBESITY N GERD/NAUSEA N ANEURYSM N URINARY/BLADDER/KIDNEY PROBLEMS N CORONARY ARTERY DISEASE (CAD) N MENIERE'S DISEASE N ADDICTION CONCERNS N ENDOMETRIOSIS N USE OF BLOOD THINNERS N SKIN PROBLEMS N EMPHYSEMA N GASTROINTESTINAL DISORDER N MUSCLE,JOINT OR BONE PROBLEMS N GASTROINTESTINAL BLEEDING N BLOOD CLOTS N ASTHMA N CATARACTS N ERECTILE DYSFUNCTION N GI PROBLEMS N CHF N Low Testosterone N NEUROPATHY N INFERTILITY N AIDS/HIV N FRACTURES N CHEMOTHERAPY / RADIATION N VISION/EYE PROBLEMS N LIVER DISEASE N MALE HYPOGONADISM N HYPERTENSION N TOURETTE'S N ANXIETY DISORDER N BLOOD TRANSFUSION N ANEMIA/BLOOD DISORDER N CHRONIC EAR INFECTIONS N BRONCHITIS N TUBERCULOSIS N GLAUCOMA N FOOT PROBLEM N DIVERTICULITIS N CHICKENPOX N SLEEP APNEA N ALLERGIES/HAYFEVER N INFECTIOUS DISEASE N HEART ARRHYTHMIA N PROSTATE N INSOMNIA N HIGH CHOLESTEROL / HYPERLIPIDEMIA N HYPERTHYROIDISM N EYE PROBLEMS N EATING DISORDER N EDEMA N CHRONIC PAIN SYNDROME N CONSTIPATION N CAROTID BLOCKAGE N BACK / NECK PROBLEMS N HAVE YOU BEEN HOSPITALIZED OR SEEN IN [facility] IN THE PAST YEAR ? N ATHEROSCLEROSIS N BREAST PROBLEMS N DIALYSIS N ECZEMA N FIBROMYALGIA N OSTEOPOROSIS N ARTHRITIS N NO SIGNIFICANT PAST MEDICAL HISTORY N APPENDICITIS N DIABETES, TYPE N BAD TEETH N HEARTBURN / REFLUX N ADD/ADHD N AUTISM SPECTRUM DISORDER (ASD) N HEPATITIS / LIVER DISEASE N PULMONARY DISEASE N GOUT N SLEEP DISORDER N ALZHEIMER'S DISEASE N PAIN N HERPES N DEMENTIA N HEADACHES/MIGRAINES N SEIZURES/EPILEPSY N VASCULAR DISEASE N PACEMAKER N DIZZINESS N HEART DISEASE/HEART PROBLEMS N KIDNEY DISEASE N DEVELOPMENTAL OR BEHAVIORAL DISORDERS N MULTIPLE SCLEROSIS N SCARLET FEVER N MENTAL DISORDER/ILLNESS N CARDIAC ARRHYTHMIA N CANCER: SPECIFY N PNEUMONIA N ATRIAL FIBRILLATION N Gall Stones N PULMONARY EMBOLISM N AUTOIMMUNE DISEASE N Gynecological History Statement/Question Response STIs/STDs N Date of Last Pap 11/24/2022 Most Recent Mammogram 12/16/2022 Breast Problems no How many live births 3 If Post Menopausal, Age at Menopause 43 Date of Last Mammogram 12/16/2022 Date of Last Colonoscopy 09/06/2021 Most Recent Bone Density 09/06/2021 Sexually Active? Y Date of Last Pap Smear 11/24/2022 Discharge no Obstetrics History GPAL:G 5 P 4 0 1 4 Type Value Full Term 4 Living 4 Ectopics 1 Total 5 Immunizations Vaccine Type Date Status Note Provider Nam e and Address Organization Details Recorded Time Influenza, split virus, quadrivalent, PF 05/21/2022 completed Not Available [facility] 3 03:05:21 Influenza, split virus, quadrivalent, PF 06/10/2023 completed SUSANNA Zaman [facility] 06/10/2023 09:30:55 Past Encounters Encounter ID Performer Location Encounter Start Date Encounter Closed Date Diagnosis/Indication Diagnosis SNOMED-CT Code Diagnosis ICD10 Code Diagnosis Note [id number] Marcos Bella MD [facility] [address] [place] [id number] 10/28/2021 00:00:00 10/28/2021 17:58:12 [id number] Marcos Bella MD [facility] [address] [place] [id number] 1 11/12/2021 00:00:00 11/12/2021 16:02:58 [id number] Marcos Bella MD [facility] [address] [place] [id number] 1 11/19/2021 00:00:00 11/19/2021 17:10:02 [id number] S[facility] [place] [address] [facility] [address] [place] [address] 12/04/2021 00:00:00 12/04/2021 18:21:32 [id number] Marcos Bella MD [address] [address] 12/10/2021 00:00:00 12/10/2021 17:09:13 [id number] Marcos Bella MD [facility] [address] [place] [id number] 01/08/2022 00:00:00 01/08/2022 17:19:14 [id number] Bella MD [address] [address] 02/19/2022 00:00:00 02/19/2022 16:58:33 [id number] Marcos Bella MD Formerly [facility] [address] [place] [address] 1 05/21/2022 00:00:00 05/21/2022 17:26:01 [id number] Marcos Bella MD [address] [address] 1 06/11/2022 00:00:00 06/11/2022 13:04:24 [id number] Marcos Bella MD [address] [address] 1 07/27/2022 00:00:00 07/27/2022 09:31:48 [id number] Alana Castro NP [address] [address] 1 11/24/2022 07:52:12 11/24/2022 08:37:51 Gynecologic examination [id number] Z01.419 Encouraged well balanced meals, active lifestyle, and routine vision and dental appts. Screening mammography 24 240438 Z12.31 mammogram ordered 11/24/22 [id number] Marcos Bella MD [address] [address] 1 12/15/2022 11:43:22 12/15/2022 12:10:59 Adult health examination 008867280 Z00.00 Chronic low back pain 27 5817926 M54.50 Kyphosis d eformity of spine 917657868 M40.209 Osteopenia 106157945 M85 .80 Diabetes m ellitus screening 289042774 Z13.1 [id number] Marcos Bella MD [address] [address]107 1 12/31/2022 11:35:57 12/31/2022 12:03:54 Chronic low back pain 995655094 M54.50 Kyphosis d eformity of spine 653479214 M40.209 Osteopenia 978368844 M85 .80 Prediabetes 806516092 R7 3.03 Prolapsed lumbar intervertebral disc 413560198 M51.26 Stenosis o f spinal canal due to intervertebral disc 871641276 M99.59 [id number] Marcos Bella MD [address] [address] 1 03/10/2023 08:49:05 03/10/2023 09:13:50 Prediabetes 406295559 R73.03 Chronic low back pain 27 7221314 M54.50 Kyphosis d eformity of spine 586377973 M40.209 Osteopenia 825275440 M85 .80 Prolapsed lumbar intervertebral disc 400728872 M51.26 Stenosis o f spinal canal due to intervertebral disc 459723939 M99.59 [id number] Marcos Bella MD [address] [address] 1 06/10/2023 08:51:06 06/10/2023 09:23:54 Prediabetes 103266663 R73.03 Chronic low back pain 27 3187663 M54.50 Kyphosis d eformity of spine 140946767 M40.209 Osteopenia 594717059 M85 .80 Prolapsed lumbar intervertebral disc 751366007 M51.26 Stenosis o f spinal canal due to intervertebral disc 328233596 M99.59 Administra tion of influenza vaccine 44176077 Z23 [id number] Marcos Bella MD [address] [address]748 1 09/16/2023 17:21:29 09/16/2023 17:56:43 Prediabetes 043135689 R73.03 Chronic low back pain 27 7538222 M54.50 Kyphosis d eformity of spine 113409266 M40.209 Osteopenia 032164875 M85 .80 Prolapsed lumbar intervertebral disc 085329198 M51.26 Stenosis o f spinal canal due to intervertebral disc 907337251 M99.59 Chronic id iopathic constipation 02883229 K59.04 [id number] Marcos Bella MD [address] [address] 1 12/16/2023 11:13:43 12/16/2023 11:53:41 Prediabetes 937262615 R73.03 Chronic low back pain 27 0801870 M54.50 Kyphosis d eformity of spine 497346121 M40.209 Osteopenia 753545981 M85 .80 Prolapsed lumbar intervertebral disc 628340431 M51.26 Stenosis o f spinal canal due to intervertebral disc 542005532 M99.59 Chronic id iopathic constipation 39591361 K59.04 Adult heal th examination 159423219 Z00.00 Screening mammography 24 747661 Z12.31 [id number] Marcos Bella MD [address] [address] 1 12/22/2023 09:30:37 12/22/2023 10:33:39 Screening for osteoporosis 792639567 Z13.820 Gynecologi c examination 12880571 Z01.419 Z01.907 [id number] Marcos Bella MD [address] [address] 1 01/04/2024 12:45:25 01/04/2024 13:08:11 Prediabetes 164014353 R73.03 Chronic low back pain 27 5518915 M54.50 Kyphosis d eformity of spine 954814455 M40.209 Chronic id iopathic constipation 09803593 K59.04 Osteopenia 165254367 M85 .80 Prolapsed lumbar intervertebral disc 335377330 M51.26 Stenosis o f spinal canal due to intervertebral disc 332475421 M99.59 Hypercalcemia 94370926 E 83.52 [id number] Marcos Bella MD [address] [address] 1 04/04/2024 10:15:14 04/04/2024 10:43:35 Prediabetes 333356228 R73.03 Diet controlled Chronic low back pain 27 1047148 M54.50 Kyphosis d eformity of spine 179499962 M40.209 Chronic id iopathic constipation 01125417 K59.04 Osteopenia 948044509 M85 .80 Prolapsed lumbar intervertebral disc 865365178 M51.26 Stenosis o f spinal canal due to intervertebral disc 043586693 M99.59 Hypercalcemia 02633669 E 83.52 [id number] MIMI Mckinley-[facility] Jackie gallo [address] [facility] [address] [facility] [place] [address] 06/20/2024 14:35:09 06/20/2024 15:29:52 Hyperlipidemia 48868033 E78.5 Doing well on current medication s, will refill as needed.Lab s are up to date. Hypercalcemia 88781897 E 83.52 Prediabetes 491545333 R7 3.03 Chronic low back pain 27 8826525 M54.50 Health Concerns Section Related Observation LastModified by Organization Detai ls LastModified Time None Recorded Concern Status LastModified by Organization Details LastModified Time None Recorded Advance Directives Directive N: will Payers Encounter Date Sequence Insurance Name Policy Number Policy Kimball Covered Member ID Kimball Member ID Guarantor Name 12/16/2023 3 [facility] (MEDICARE REPLACEMENT/A DVANTAGE - HMO) Dori Elders [id number] Dori Elders 12/16/2023 2 [place] [facility] Dori Elders [id number] Dori Elders 12/22/2023 2 [place] [facility] Dori Elders [id number] Dori Elders 12/22/2023 2 [facility] - DOS ON OR AFTER 2020 - DUAL ELIGIBLE (MEDICARE REPLACEMENT/A DVANTAGE - HMO) Dori Elders [id number] Dori Elders 01/04/2024 2 [facility] - DOS ON OR AFTER 2020 - DUAL ELIGIBLE (MEDICARE REPLACEMENT/A DVANTAGE - HMO) Dori Elders [id number] Dori Elders 01/04/2024 1 [place] Dori K Elders [id number] Dori Elders 04/04/2024 1 [place] Dori K Elders [id number] Dori Elders 06/20/2024 1 [facility] (MEDICARE REPLACEMENT/A DVANTAGE - HMO) [id number] Dori Elders [id number] Dori Elders Notes Date Note Type Note Provider Name and Address Organization Details Recorded Time 12/16/2023 text/html Pt is here for her annual exam. Doing overall well. Denies any problem with meds. Denies any new concerns.Pt says her back pain is much improved compared to before and denies any problem with meds. Denies any incontinence.Pt has done PT for her back pain and is doing home exercises too. Marcos Bella MD [address] [facility], [place] [address], [place], [address], [employer] 12/16/2023 11:51:37 12/22/2023 text/html Pap/PelvicReport e d bypatient.Context :appt for screening pap/pelvic/breast exam Associated Factors:at least three pap smears in past 7 years; low risk sexual history; up to date mammogram;prior abnormal pap smearNotes:Prolap sed vaginal wall, patient currently utilizing vaginal abx for cervix infection MIMI Quach [address] [facility], [place] [address], [place], [address], [employer] 12/22/2023 10:18:27 01/04/2024 text/html Pt is here for f/u on her annual labs. Doing overall well. Denies any problem with meds. Denies any new concerns.Pt says her back pain is much improved compared to before and denies any problem with meds. Denies any incontinence.Pt has done PT for her back pain and is doing home exercises too. Marcos Bella MD [address] [facility], [place] [address], [place], [address], [employer] 01/04/2024 13:02:27 04/04/2024 text/html Pt is here for f/u on her labs and chronic conditions. Doing overall well. Denies any problem with meds. Denies any new concerns. Pt got rash over her hands and feet after starting Metformin and when she stopped it, it got resolved. So pt doesn't want to take it in future.Pt says her back pain is much improved compared to before and denies any problem with meds. Denies any incontinence.Pt has done PT for her back pain and is doing home exercises too. Marcos Bella MD [address] [facility], [facility] [address], [place], [address], [employer] 04/04/2024 10:40:56 06/20/2024 text/html Patient is a 63 year old female that presents to the office to establish care with new PCP, patient previously saw Dr. Bella in [place]. Patient is doing well on current medications, has no concerns at this time including chest pain and shortness of breath, nausea vomiting and diarrhea. MIMI Mckinley-C [address] [facility], [facility] [address], [place], [address], [facility] [employer] [facility] 06/23/2024 01:08:10 OBGyn Episode No OBEpisode recorded.
--- OUTSIDE RECORDS SUMMARY | 2025-01-10 08:48 | XMS_ITS | Clinical Summary ---
Author Organization [facility] Address [address] [place] [address] Care Team Providers Care Aircraft Technician Name Role Phone Alana Castro APRN-MAJOR SALES ASSOCIATE Primary Care Provider Source Comments [facility],non-owned Affiliates and Associated Physician Practices is amultiple site organization consisting of ambulatory clinics and hospital sitesin [place], [place], [place] and [place]. This disclosure is being madepursuant to the Care Everywhere program and may not contain all information available regarding this patient. Last updated 18.[facility] Allergies Active Allergy Reactions Criticality Noted Date Comments Chocolate Flavor Headache 03/28/2021 Chocolate Medications * Be aware that medications may not be up to date on this document. Alwaysverify current medications with the patient. meloxicam (MOBIC) 7.5 MG tablet Take 1 (one) tablet by mouth once daily 30 tablet 1 1 Active Additional Information Patient taking differently:7.5 mg Oral2 TIMES DAILY, Reported on 01/18/2023 atorvastatin (LIPITOR) 10 MG tablet TAKE 1 TABLET BY MOUTH EVERY DAY AT BEDTIME 2 Active ASPIRIN 81 PO Take 81 mg by mouth every 24 hours Active Multiple Vitamins-Mineral s (COMPLETE MULTIVITAMIN/MIN ERAL PO) Complete Multivitamin-Mi neral Active Calcium Carbonate (CALCIUM 600 PO) Take 600 mg by mouth once daily Active Biotin 800 MCG Take 1 tablet by mouth once daily Active vitamin D3 (CHOLECALCIFEROL ) 10 MCG (400 UNIT) tablet Take 1 (one) tablet by mouth 2 times daily Active docusate sodium (DOCUPRENE) 100 MG tablet Take 2 (two) tablets by mouth 2 times daily Active simethicone (MYLICON) 80 MG chew tablet Gas Relief (simethicone) 80 mg chewable tablet Take by oral route. Active cyclobenzaprine (Flexeril) 10 MG tablet Take 1 (one) tablet by mouth once daily 2 Active ascorbic acid (Vitamin C) 250 MG chewable tablet Take 1 (one) tablet by mouth 2 times daily Active Lactobacillus (PROBIOTIC ACIDOPHILUS PO) Take 1 tablet by mouth 2 times daily Active gabapentin (Neurontin) 300 MG capsule Take 1 (one) capsule by mouth 3 times daily Active estradiol (Estrace) 0.1 MG/GM vaginal cream Insert 1g into the vagina nightly for 1 week. Then insert 1g into the vagina two times a week thereafter. 42.5 g 3 3 Active Active Problems Problem Noted Date Diagnosed Date Abdominal bloating 01/18/2023 01/18/2023 Bloating symptom 01/18/2023 01/18/2023 Levoscoliosis 01/18/2023 01/18/2023 Prediabetes 12/31/2022 01/18/2023 Prolapse of anterior vaginal wall 06/29/2022 Assessment & Plan (06/29/2022 10:12 AM CDT): She is bothered by the bulge sensation. Referral placed to physical therapy and to urogynecology. We discussed starting with pelvic floor physical therapy and at least discussing with urogynecology what they may be able to offer her otherwise. Herniated lumbar intervertebral disc 06/11/2022 01/18/2023 Intervertebral disc stenosis of neural canal 02/202201/18/2023 Dyspareunia in female 01/05/2022 Assessment & Plan (01/05/2022 10:58 AM CDT): On exam she does appear to be hypoestrogenic. Given the main symptom (burning on the outside), I first recommend to try lubricants, especially either oil or silicon based ones, which can help protect fragile tissues. If this does not help enough, recommend return to clinic for further discussion. Vaginal lesion 01/05/2022 Assessment & Plan (01/05/2022 10:59 AM CDT): This piece of tissue appears benign and does not feel cystic or like a mass. If it were to grow or otherwise begin to cause issues, I would consider imaging and/or biopsy, but it appears like some prolapsing vaginal mucosa at this time. Stress incontinence 01/05/2022 Assessment & Plan (01/05/2022 11:00 AM CDT): Encouraged continuing the muscle strengthening exercises since they are helping. Offered referral to urogyn if symptoms worsen or she wishes to discuss further management. Declines for the time being. Degeneration of lumbar intervertebral disc 12/1001/18/2023 Abnormal cervical Papanicolaou smear 11/24/2021 01/18/2023 Chronic low back pain 11/19/2021 01/18/2023 Hyperlipidemia 11/19/2021 01/18/2023 Onychomycosis of toenail 11/12/2021 023 Female cystocele 11/12/2021 01/18/2023 Kyphosis deformity of spine 10/28/202101/04 History of gestational diabetes mellitus 022 01/18/2023 Acquired curvature of spine 02/12/202101/04 Atypical chest pain 01/27/2021 01/18/2023 Encounter for screening for malignant neoplasm o f breast 01/27/2021 01/18/2023 Osteopenia 01/27/2021 01/18/2023 Contusion of upper limb 09/02/2017 01/19/20 23 Resolved Problems Problem Noted Date Diagnosed Date Resolved Date Constipation 01/18/2023 01/18/2023 02/15/2023 Immunizations Immunization Administration Dates Next Due FLU VACCINE TRI IIV3 SPLIT IM (FLUVIRIN) 016 INFLUENZA VACCINE 01/06/2021 INFLUENZA VACCINE, QUADR. (A FLURIA, FLUZONE QUADRIVALENT; 6MO+) (IIV4) 05/31/2019 iNFLUENZA VACCINE, RECOM-VELASQUEZ, QUADR. (FLUBLOCK QUADRIVALENT; 18Y+) (RIV4) 07/26/2021 Family History Medical History Relation Name Comments Diabetes - Type 2 Brother Cancer - Liver Father Diabetes - Type 2 Mother Diabetes - Type 2 Sister Relation Name Status Comments Brother Father Mother Sister Social History Tobacco Use Types Packs/Day Years Used Date Smoking Tobacco: Never Passive Smoke Exposure: Never Smokeless Tobacco: Never Tobacco Cessation:Counseling Given: Not Answered Alcohol Use Standard Drinks/Week Comments Not Currently 0 (1 standard drink = 0.6 oz pur e alcohol) Comments No Sex and Gender Information Value Date Recorded Sex Assigned at Not on file 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 Gender Identity Not on file Sexual Orientation Not on file Last Filed Vital Signs Vital Sign Reading Time Taken Comments Blood Pressure 145/89 03/05/2023 3:08 PM CDT Pulse 87 06/29/2022 8:18 AM CDT Temperature 35.7 C (96.3 F) 03/05/2023 3:08 PM CDT Respiratory Rate - - Oxygen Saturation 94% 06/29/2022 8:18 AM CDT Inhaled Oxygen Concentration - - Weight 54 kg (119 lb) 03/05/2023 3:08 PM CDT Height 157.5 cm (5' 2 ) 03/05/2023 3:08 PM CDT Body Mass Index 21.77 03/05/2023 3:08 PM CDT Plan of Treatment Health Maintenance Due Date Last Done Comments BONE DENSITY TESTING 1960 COLON MONITORING 1960 COLONOSCOPY - COLON CA SCREENING 1958 CT COLONOGRAPHY - COLON CA SCREENING 1960 FIT - COLON CA SCREENING 1958 FLEX SIG - COLON CA SCREENING 1960 HEPATITIS C SCREENING 12/18/1976 DTAP/TDAP/TD VACCINES (1 - Tdap) 1977 PNEUMOCOCCAL VACCINE 50+ (1 of 1 - PCV) 2008 ZOSTER VACCINE (1 of 2) 2008 MAMMOGRAM 10/30/2023 10/30/2021 (Done Outside Per Report) COVID-19 VACCINE (4 - 2023- season) 2024 07/26/2021, 01/17/2021, 12/20/2020 DEPRESSION SCREENING 09/06/2024 COLOGUARD (AGES 45-75) - COLON CA SCREENING 11/04/2024 11/04/2021, 11/04/2021 (Done Outside Per Report) Colorectal Cancer Screening 11/04/2024 INFLUENZA VACCINE (Season Ended) 2025 05/21/2022, 07/26/2021, 01/06/2021, Additional history exists Respiratory Syncytial Virus (RSV) Vaccine Pt: or over 60 yrs (1 - 1-dose 75+ series) 2033 HEPATITIS B VACCINE Aged Out No longe r eligible based on patient's age to complete this topic HIB VACCINE Aged Out No longer eligi ble based on patient's age to complete this topic HPV VACCINE Aged Out No longer eligi ble based on patient's age to complete this topic MENINGOCOCCAL (Group B) VACCINE SHARED DECISION-MAKING Aged Out No longer eligible based on patient's age to complete this topic MENINGOCOCCAL GROUPS A/C/Y/W VACCINE Aged Out No longer eligible based on patient's age to complete this topic [place] [address] [facility] Care Teams Aircraft Technician Relationship Specialty Start Date End Date Alana Castro, MANAGER OF MANUFACTURING-MAJOR SALES ASSOCIATE [address] [place] [phone] PCP - General 12/26/21
[2025-01-10 09:16] LABS: Basophils Percent Auto 0.7 % (0.2-1.2); Eosinophils Absolute Auto 0.3 K/mm3 (0-0.3); Eosinophils Percent Auto 5.4 % (0-4.4); Hematocrit 39.5 % (37.0-47.0); Hemoglobin 12.9 g/dL (12.0-15.0); Lymphocytes Absolute Auto 1.99 K/mm3 (0.9-3.2); Lymphocytes Percent Auto 36.1 % (18.3-44.2); Mean Corpuscular HGB Conc 32.7 g/dl (32-36); Mean Corpuscular Hemoglobin 30.1 pg (26-34); Mean Corpuscular Volume 92.3 fl (80-100); Mean Platelet Volume 9.9 fl (7.4-10.4); Monocytes Absolute Auto 0.5 K/mm3 (0.1-0.6); Monocytes Percent Auto 9.6 % (2.6-8.5); Neutrophils Absolute Auto 2.7 K/mm3 (1.3-6.7); Neutrophils Percent Auto 48.2 % (45.5-73.1); Platelet Count Result 215 k/mm3 (150-375); Red Blood Count 4.28 M/mm3 (4.2-5.4); Red Cell Distribution Width 12.6 % (11.5-14.5); White Blood Count 5.5 K/mm3 (4.5-10.0)
[2025-01-10 09:33] LABS: Alanine Aminotransferase 23 U/L (6-35); Alkaline Phosphatase 64 U/L (38-126); Anion Gap 4 mmol/L (4-12); Aspartate Amino Transferase 32 U/L (14-36); Bilirubin,Total 0.5 mg/dL (0.2-1.3); Blood Urea Nitrogen 17 mg/dL (7-17); Calcium 9.3 mg/dL (8.4-10.2); Carbon Dioxide 30 mmol/L (22-30); Chloride 105 mmol/L (98-107); Cholesterol 145 mg/dL (0-200); Estimated Glomerular Filt Rate > 60; Glucose 81 mg/dL (65-110); HDL Direct 50 mg/dL; Potassium 4.2 mmol/L (3.4-5.0); Sodium 139 mmol/L (137-145); Triglycerides 76 mg/dL (<150)
[2025-01-10 09:44] LABS: LDL Cholesterol Direct 61 mg/dL
[2025-01-10 09:49] LABS: Hemoglobin A1C 5.9 % (<5.7)
[2025-01-10 10:31] LABS: Hepatitis C Virus Antibody Negative (Negative)
== END 2025-01-10 08:28 | disposition home or self-care (01) ==
PROVIDERS: PCP Family Medicine; Visit Provider Family Medicine
DX: K62.5 Hemorrhage of anus and rectum (principal); Z11.59 Encounter for screening for other viral diseases; E78.2 Mixed hyperlipidemia; R73.03 Prediabetes
CPT/HCPCS: 36415; 80053; 80061; 83036; 85025; 86803

== ENCOUNTER 2025-07-13 09:37 | Outpatient (CLI) | payer MEDICARE, SELFPAY ==
--- NOTE | 2025-07-13 10:01 | ECG_ITS ---
Test Date: 2025-07-13 10:10:36 Measurements Intervals [place] Rate: 77 P: 36 MD: 165 QRS: -44 QRSD: 146 T: 111 QT: 387 QTc: 440 Interpretive Statements SINUS RHYTHM LEFT BUNDLE BRANCH BLOCK Electronically Signed On 07-13-2025 12:40:05 DAY CAMP UNIT LEADER by Sarmad Posadas D.O
--- OUTSIDE RECORDS SUMMARY | 2025-07-13 10:18 | XMS_ITS | Clinical Summary ---
Author Organization [facility] Address [address] [place] [address] Phone Care Team Providers Care Surveyor Geophysical Prospecting Name Role Phone Tiff Cristina MD Primary Care Provider Social History Tobacco Use Types Packs/Day Years Used Date Smoking Tobacco: Never Assessed Comments No Sex and Gender Information Value Date Recorded Sex Assigned at Not on file Legal Sex Female 4:25 PM CDT Gender Identity Not on file Sexual Orientation Not on file Plan of Treatment Health Maintenance Due Date Last Done Comments Hepatitis C Virus (HCV) Screening 1960 TdaP Immunization 1960 Cologuard 12/24/2003 Colonoscopy 12/24/2003 Colorectal Cancer Screening 12/24/2003 Immunochemical Fecal Occult Blood 12/24/2003 Pneumococcal Immunization (5 0+ years) (1 of 1 - PCV) 2008 Zoster Immunization (1 of 2) 2008 Influenza Immunization (#1) 2025 SARS-COV-2 Immunization ( - 2023- season) 2025 Respiratory Syncytial Virus (RSV) Immunization (Adult) (1 - 1-dose 75+ series) 2033 Mammogram Discontinued 01/27/2016 Hepatitis B Immunization Aged Out No longer eligible based on patient's age to complete this topic Human Papillomavirus (HPV) Immunization Aged Out No longer eligible b ased on patient's age to complete this topic Meningococcal Immunization (ACWY) Aged Out No longer eligible based on patient's age to complete this topic Rotavirus Immunization Aged Out No lo nger eligible based on patient's age to complete this topic Procedures Procedure Name Priority Date/Time Associated Diagnosis Comments [facility] SCREENING BILATERAL DIGITAL W CAD Routine 01/27/2016 [...] copy. Current study was also evaluated with TweetPhoto version 7.2. CLINICAL: Routine screening. Patient has no complaints. No personal history of cancer. No family history of breast cancer. COMPARISONS: Comparison is made to exams dated: 03/31/2012, 04/21/2012, 03/28/2013, and 04/19/2014 [facility]. BREAST TISSUE:The tissue of both breasts is [...] Electronically signed by: Jose Carlos morales/abigail:02/05/2016 08:25:42 Binder Sorter: Akua Aviles, [facility] letter sent: Normal Exam Reading location: [facility] BI-RADS: 1 Negative Procedure Note Jose Carlos [...] exams dated: 03/31/2012, 04/21/2012, 03/28/2013, and 04/19/2014 [facility]. BREAST TISSUE:The tissue of both breasts is [...] Electronically signed by: Jose Carlos Sanford M.D. bs/penrad:02/05/2016 08:25:42 Binder Sorter: Akua Aviles, [facility] letter sent: Normal Exam Reading location: [facility] BI-RADS: 1 Negative us Floyd Newman MD IMG MAMMO ORDERABLES F inal Result from Last 3 Months or Most Recently Relevant to Health Maintenance Care Teams Surveyor Geophysical Prospecting Relationship Specialty Start Date End Date Tiff Cristina MD [address] [place] [address] PCP - General Internal Medicine 12/24/15
--- OUTSIDE RECORDS SUMMARY | 2025-07-13 10:18 | XMS_ITS | Encounter Summary ---
Author Organization [facility] Address [address] [facility] [place] [address] Care Team Providers Care Export Manager Name Role Phone Gloria Alana Messina APRN-JAW SKINNER Primary Care Provider Reason for Visit * Reason Onset Date Comments Consultation 12/31/2021 Encounter Details Date Type Department Care Team (Late st Contact Info) Description 12/31/2021 Telephone [facility] [address] [place] [address] Daisy Espinal MD [address] [address] Consultation Social History Tobacco Use Types Packs/Day Years Used Date Smoking Tobacco: Never Smokeless Tobacco: Never Alcohol Use Standard Drinks/Week Comments Not Currently 0 (1 standard drink = 0.6 oz pur e alcohol) Comments No Sex and Gender Information Value Date Recorded Sex Assigned at Not on file 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 Per pt she spoke to speech and language tutor in [facility] and they told her to reach [...] CDT Pt was instructed to speak with speech and language tutor before scheduling an appt with another speech and language tutor in [place]. documented in this encounter Plan of Treatment Not on file documented as of this encounter Visit Diagnoses Not on filedocumented in this encounter Care Teams Export Manager Relationship Specialty Start Date End Date Alana Castro APRN-JAW SKINNER [address] [place] [phone] PCP - General 12/26/21 documented as of this encounter
--- OUTSIDE RECORDS SUMMARY | 2025-07-13 10:18 | XMS_ITS | Clinical Summary ---
Author Organization [facility] Address [address] [place] [address] Care Team Providers Care Cryptozoologist Name Role Phone Tiff Cristina MD Primary Care Provider Unavail able Social History Tobacco Use Types Packs/Day Years [...] 2008 Dexa Scan (General) 12/24/2023 COVID-19 Vaccine ( - 2024-2 6 season) 2025 Influenza Adult (#1) 2025 RSV Immunization or 60+ Years (1 - 1-dose 75+ series) 2033 Hepatitis A Vaccines Aged Out No long er eligible based on patient's age to complete this topic Meningococcal B Vaccine Aged Out No l onger eligible based on patient's age to complete this topic Meningococcal Vaccine Aged Out No inderjit jessica eligible based on patient's age to complete this topic RSV Immunizations Under 20 Months Aged Out No longer eligible based on patient's age to complete this topic Insurance [employer] Care Teams Cryptozoologist Relationship Specialty Start Date End Date Tiff Cristina MD PCP - General INTERNAL MEDICINE 04/04/21
--- OUTSIDE RECORDS SUMMARY | 2025-07-13 10:18 | XMS_ITS | Clinical Summary ---
Author Organization [facility] [employer] Address [address] [place] [address] Care Team Providers Care Woodwind Instrument Repairer Name Role Phone Alana Castro APRN-BRIDGE EXPERT Primary Care Provider Source Comments [facility],non-owned Affiliates and Associated Physician Practices is amultiple site organization consisting of ambulatory clinics and hospital sitesin [place], [place], [place] and [place]. This disclosure is being madepursuant to the Care Everywhere program and may not contain all information available regarding this patient. 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 Gender Identity Not on file Sexual Orientation [...] 3:08 PM CDT Height 157.5 cm (5' 2) 03/05/2023 3:08 PM CDT Body Mass Index [...] MAMMOGRAM 10/30/2023 10/30/2021 (Done Outside Per Report) DEPRESSION SCREENING 09/06/2024 COLOGUARD (AGES 45-75) - COLON CA SCREENING 11/04/2024 11/04/2021, 11/04/2021 (Done Outside Per Report) Colorectal Cancer Screening 11/04/2024 COVID-19 VACCINE ( season) 2025 07/26/2021, 01/17/2021, 12/20/2020 INFLUENZA VACCINE (#1) 2025 , 07/26/2021, 01/06/2021, Additional history exists Respiratory Syncytial [...] patient's age to complete this topic Insurance [place] [address] [facility] Care Teams Woodwind Instrument Repairer Relationship Specialty Start Date End Date Alana Castro, HEATING TECHNICIAN-BRIDGE EXPERT [address] [place] [phone] PCP - General 12/26/21
== END 2025-07-13 09:38 | disposition home or self-care (01) ==
LOC: ANHSURGERY 09:41
PROVIDERS: PCP Family Medicine; Visit Provider Urology
DX: Z01.818 Encounter for other preprocedural examination (principal); I44.7 Left bundle-branch block, unspecified; E78.5 Hyperlipidemia, unspecified
CPT/HCPCS: 93005

== ENCOUNTER 2025-08-24 09:06 | Outpatient (CLI) | payer MEDICARE, SELFPAY ==
--- NOTE | ~2025-08-24 | NM_ITS ---
EXAMINATION: NM dorothy stress w perfusion DATE: 08/24/2025 11:22 INDICATION: Preop TECHNIQUE: Rest images were obtained following intravenous administration of 11.2 to mCi Tc99m tetrofosmin (Myoview). The patient was infused intravenously with Lexiscan (regadenoson). Then, 34.4 mCi Tc99m tetrofosmin (Myoview) was administered intravenously, and stress images were obtained. Data was r econstructed into short axis and horizontal and vertical long axis SPECT images. Gated SPECT images were also obtained. COMPARISON: None. FINDINGS: Mildly photopenic appearance in the apical septal region. The remaining the ventricular reynoso appear symmetric and normal. No reversible defect.. Segmental wall contraction appears somewhat irregular. Left ventricular ejection fraction measures 36%. IMPRESSION: 1. Possible small infarction or fixed defect in the apical septal region. No reversible defect or definite ischemia. 2. The septal wall also appears to be mildly dyskinetic. 3. Left ventricular ejection fraction 36%, below normal reference range of 50-75%. Reviewed, dictated and finalized at location A. [facility] IMPRESSION: 1. Possible small infarction or fixed defect in the apical septal region. No re versible defect or definite ischemia. 2. The septal wall also appears to be mildly dyskinetic. 3. Left ventricular ejection fraction 36%, below normal reference range of 50-7 5%.
--- NOTE | 2025-08-24 09:17 | EST_ITS ---
Patient Info Name: Dori Dominique Age: 64 years : 1960 Gender: Female Ht: 62 in Wt: 122 lbs BSA: 1.56 m2 HR: 88 bpm BP: 149 / 89 mmHg Exam Date: 08/24/2025 9:17 AM Patient Status: O Admit Date: 08/24/2025 Exam Type: CA stress dorothy w NM A regadenoson stress test was performed. Staff Referring Physician: Rasheed Pineda DO Attending Provider: Rasheed Pineda DO Exercise Technologist: Maame Heath Exercise Physician: Rasheed Pineda DO Summary 1. 1. Inconclusive lexiscan stress test for ischemic ST changes by ECG criteria due to baseline LBBB. 2. 2. Baseline hypertension. 3. 3. Nuclear scan to follow and will be reported separately. Please correlate with it. 4. 4. Patient informed of the above results. Protocol: Lexiscan Stress ECG Details Stage: REST Duration (min): 0 min : 35 sec HR (bpm): 86 SBP (mmHg): 149 DBP (mmHg): 89 Stage: REST Duration (min): 5 min : 9 sec HR (bpm): 87 SBP (mmHg): 149 DBP (mmHg): 89 Stage: STAGE 1 Duration (min): 1 min : 0 sec HR (bpm): 99 SBP (mmHg): 159 DBP (mmHg): 92 Stage: RECOVERY Duration (min): 1 min : 0 sec HR (bpm): 106 SBP (mmHg): 159 DBP (mmHg): 92 Stage: RECOVERY Duration (min): 2 min : 0 sec HR (bpm): 107 SBP (mmHg): 159 DBP (mmHg): 92 Stage: RECOVERY Duration (min): 3 min : 0 sec HR (bpm): 110 SBP (mmHg): 156 DBP (mmHg): 87 Stage: RECOVERY Duration (min): 4 min : 0 sec HR (bpm): 102 SBP (mmHg): 156 DBP (mmHg): 87 Stage: RECOVERY Duration (min): 5 min : 0 sec HR (bpm): 100 SBP (mmHg): 155 DBP (mmHg): 84 Stage: RECOVERY Duration (min): 6 min : 0 sec HR (bpm): 96 SBP (mmHg): 155 DBP (mmHg): 84 Stage: RECOVERY Duration (min): 7 min : 0 sec HR (bpm): 94 SBP (mmHg): 148 DBP (mmHg): 85 Stage: RECOVERY Duration (min): 7 min : 4 sec HR (bpm): 95 SBP (mmHg): 148 DBP (mmHg): 85 Rest HR: 87 bpm Peak HR: 110 bpm Rest Sys BP: 149 mmHg Peak Sys BP: 159 mmHg Max Pred HR: 154 bpm % Max Pred HR: 71 % Target HR: 131 bpm Max RPP: 17,490 bpm*mmHg Termination Reason: Completed protocol Cardiac Symptoms: Shortness of breath, Headache Total Time: 1 min : 0 sec Rest Bourne BP: 89 mmHg Peak Bourne BP: 92 mmHg Total Dose: 0.4 mg Resting ECG Sinus rhythm, LBBB. Stress ECG No ST changes. Arrhythmias None. Report Signatures
--- OUTSIDE RECORDS SUMMARY | 2025-08-24 09:21 | XMS_ITS | Clinical Summary ---
Author Organization [facility] Address [address] [place] [address] Phone Care Team Providers Care Bonding Agent Name Role Phone Tiff Cristina MD Primary [...] Procedure Name Priority Date/Time Associated Diagnosis Comments [facility] SCREENING BILATERAL DIGITAL W CAD Routine [...] copy. Current study was also evaluated with [employer] version 7.2. CLINICAL: Routine screening. Patient has no complaints. No personal history of cancer. No family history of breast cancer. COMPARISONS: Comparison is made to exams dated: 03/31/2012, 04/21/2012, 03/28/2013, and 04/19/2014 [facility]. BREAST TISSUE:The tissue of both breasts is [...] Electronically signed by: Jose Carlos morales/abigail:02/05/2016 08:25:42 Line Up Examiner: Akua Aviles, [facility] letter sent: Normal Exam Reading location: [facility] BI-RADS: 1 Negative Procedure Note Jose Carlos [...] exams dated: 03/31/2012, 04/21/2012, 03/28/2013, and 04/19/2014 [facility]. BREAST TISSUE:The tissue of both breasts is [...] by: Jose Carlos Sanford M.D. bs/penrad:02/05/2016 08:25:42 Line Up Examiner: Akua Aviles, [facility] letter sent: Normal Exam Reading location: [facility] BI-RADS: 1 Negative us Floyd Newman MD IMG MAMMO ORDERABLES F inal Result from Last 3 Months or Most Recently Relevant to Health Maintenance Care Teams Bonding Agent Relationship Specialty Start Date End Date Tiff Cristina MD [address] [place] [address] PCP - General Internal Medicine 12/24/15
--- OUTSIDE RECORDS SUMMARY | 2025-08-24 09:22 | XMS_ITS | Encounter Summary ---
Author Organization [facility] Address [address] [place] [address] Care Team Providers Care Devulcanizer Operator Name Role Phone Gloria Alana Messina APRN-PICKER AND SORTER LOAD AND UNLOAD Primary Care Provider Reason for Visit * Reason Onset Date Comments Consultation 12/31/2021 Encounter Details Date Type Department Care Team (Late st Contact Info) Description 12/31/2021 Telephone [facility] [address] [place] [address] Daisy Espinal MD [address] [address] Consultation Social History Tobacco Use Types Packs/Day Years Used Date Smoking Tobacco: Never Smokeless Tobacco: Never Alcohol Use Standard Drinks/Week Comments Not Currently 0 (1 standard drink = 0.6 oz pur e alcohol) Comments No Sex and Gender Information Value Date Recorded Sex Assigned at Not on file Legal Sex Female 10:54 AM RESIDENT CARE PROVIDER Gender Identity Not on file Sexual Orientation Not on file documented as of this encounter Miscellaneous Notes * Telephone Encounter - Bruna Presley RN - 12/31/2021 2:32 PM CDT RN returned call to pt. Per pt she spoke to central office equipment engineer in [facility] and they told her to reach [...] CDT Pt was instructed to speak with central office equipment engineer before scheduling an appt with another central office equipment engineer in [place]. documented in this encounter Plan of Treatment Not on file documented as of this encounter Visit Diagnoses Not on filedocumented in this encounter Care Teams Devulcanizer Operator Relationship Specialty Start Date End Date Alana Castro APRN-PICKER AND SORTER LOAD AND UNLOAD [address] [place] [phone] PCP - General 12/26/21 documented as of this encounter
--- OUTSIDE RECORDS SUMMARY | 2025-08-24 09:22 | XMS_ITS | Clinical Summary ---
Author Organization [facility] [employer] Address [address] [place] [address] Care Team Providers Care Claims Clerk Name Role Phone Alana Castro APRN-AN/SQQ [id number] SONAR SYSTEM JOURNEYMAN Primary Care Provider Source Comments [facility] [employer],non-owned Affiliates and Associated Physician Practices is amultiple site organization consisting of ambulatory clinics and hospital sitesin [place], [place], [place] and [place]. This disclosure is being madepursuant to the Care Everywhere program and may not contain all information available regarding this patient. 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
--- OUTSIDE RECORDS SUMMARY | 2025-08-24 09:22 | XMS_ITS | Data Portability ---
Author Organization [place] [employer], Main Office Address [address] [place] [id number] Care Team Providers Care Yarn Spooler Name Role Phone CRISTIAN BAUMPRINCESS Primary Care Provider Assessment Encounter Date Assessment Date Assessment LastModified by Organization Details LastModified Time 01/04/2024 01/04/2024 63 yo F with - [...] avoid any strenuous activities. Cont f/u with [facility] as per schedule. Cont f/u with [facility] as per schedule. Pt has done PT in the past. HM: JANEE - 11/24/22, normal. Cont f/u with MEDICAL CARE ADMINISTRATOR/Gyne as per schedule. Mammo - 12/20/23, normal. Colonoscopy - Never. Pt declined. Cologuard done on 11/04/21 - neg. DEXA - 10/30/21, Osteopenia ++. Pt gets with her Gyne. Flu - 06/10/23. Tdap, Pneumo, Shingrix - At HD. F/u in 3 months. A1c, Ca, PTH in 03/29. Annual labs in 12/29. [email or web address] Not available 01/04/2024 13:01:45 04/04/2024 04/04/2024 63 [...] avoid any strenuous activities. Cont f/u with [facility] as per schedule. Cont f/u with city as per schedule. Pt has done PT in the past. Offered to refer to Endo; but pt declined. Pt got s/e from Metformin. HM: WWE - 11/24/22, normal. Cont f/u with MEDICAL CARE ADMINISTRATOR/Gyne as per schedule. Mammo - 12/20/23, normal. Colonoscopy - Never. Pt declined. Cologuard done on 11/04/21 - neg. DEXA - 01/04/24, Osteopenia ++. Pt gets with her Gyne. Flu - 06/10/23. Tdap, Pneumo, Shingrix - At HD. F/u in 3-4 months. A1c, Ca, PTH before next visit. Annual labs in 12/29. [email or web address] Not available 04/04/2024 10:39:28 Plan of Treatment Reminders Order Date Submit Date Provider Last Modified By Organization Details Last Modified Time Details Appointments None recorded. Lab PTH (parathyroi d hormone), intact + calcium, serum or plasma 2023 [email or web address] [facility] (Lab), [address] [place], [address], 4 08:25:25 glycohemogl obin, total, blood 2023 024 [facility] (Lab), [address] [place], [address], 4 13:17:35 PTH (parathyroi d hormone), intact + calcium, serum or plasma 2023 024 [email or web address] [facility] (Lab), [address] [place], [address], 4 08:02:42 glycohemogl obin, total, blood 2023 024 [email or web address] [facility] (Lab), [address] [place], [address], 4 08:20:35 PTH (parathyroi d hormone), intact, serum or plasma 2023 024 [facility] (Lab), [address] [place], [address], 4 10:04:58 glycohemogl obin, total, blood 2023 [facility] (Lab), [address] [place], [address], 4 12:37:44 Pap test, slide(s), cervical 2023 024 [facility] (Lab), [address] [place], [address], 4 08:15:38 Referral None recorded. Procedures removal impacted cerumen requiring instrumenta tion (PROC) 2024 025 [email or web address] Not available 16:42:31 Surgeries None recorded. Imaging DEXA 2023 024 [facility] ([facility]), [address] [place], [address], 4 10:40:05 Medication Orders docusate sodium 100 mg capsule 2023 024 [email or web address] [facility] #80529, [address] [place], [place], [id number], 5 14:28:41 polyethylen e glycol 3350 17 gram/dose oral powder 2023 024 [facility] #89905, [address] [place], [place], [id number], 4 10:29:53 cyclobenzap rine 10 mg tablet 2023 024 [facility] #36011, [address] [place], [place], [id number], 4 10:29:55 meloxicam 7.5 mg tablet 2023 024 [facility], [address] [place], [place], [id number], 4 10:29:51 lidocaine 5 % topical patch [email or web address] [place] [address] [facility], [address] [place], [place], [id number], 4 14:55:48 Calcium 600 + D(3) 600 mg-10 mcg (400 unit) tablet 2023 024 [facility] #61423, [address] [place], [place], [id number], 4 10:29:54 docusate sodium 100 mg capsule 2023 024 [email or web address] [facility] #09544, [address] [place], [place], [id number], 5 14:28:41 polyethylen e glycol 3350 17 gram/dose oral powder 2023 024 [facility] #24832, [address] [place], [place], [id number], 4 12:58:12 cyclobenzap rine 10 mg tablet 2023 024 [facility] #36139, [address] [place], [place], [id number], 4 12:58:13 meloxicam 7.5 mg tablet 2023 024 [facility] #73963, [address] [place], [place], [id number], 4 12:58:14 lidocaine 5 % topical patch [email or web address] [place] [address] [facility] #28393, [address] [place], [place], [id number], 14:55:48 metformin ER 500 mg tablet,exte nded release 24 hr 2023 024 [email or web address] 477 [facility] #28505, [address] [place], [place], [id number], 14:55:58 Calcium 600 + D(3) 600 mg-10 mcg (400 unit) tablet 2023 024 [email or web address] [facility] #42207, [address] [place], [place], [id number], 12:58:11 Patient TargetsNo targets recorded. Patient InstructionsNo instructions recorded. Reason for Referral None Reported. Results Created Date Observation Date Name Description Value Unit Range Abnormal Flag Note LastModifiedBy Organization Detail LastModifiedTime 12/16/1912/16/2023 CBC/C OMPLE TE BLD COUNT W/DIF F white blood cells 6.7 x10'3 /uL 4.2-10 .8 Not Available [facility] (Lab) [address] [place], [address], 12/16/2023 20:05:19 12/16/19 24 12/16/2023 CBC/C OMPLE TE BLD COUNT W/DIF F red blood cells 4.80 x10'6 /uL 3.80-5 .20 Not Available [facility] (Lab) [address] [place], [address], 12/16/2023 20:05:19 12/16/1912/16/2023 CBC/C OMPLE TE BLD COUNT W/DIF F hemoglobin 14.6 g/dL 12.0-1 5.6 Not Available [facility] (Lab) [address] [place], [address], 12/16/2023 20:05:19 12/16/19 24 12/16/2023 CBC/C OMPLE TE BLD COUNT W/DIF F hematocrit 44.6 % 35.7-4 5.7 Not Available [facility] (Lab) [address] [place], [address], 12/16/2023 20:05:19 12/16/19 24 12/16/2023 CBC/C OMPLE TE BLD COUNT W/DIF F mean red cell volume 92.9 fL 82.0-9 9.0 Not Available [facility] (Lab) [address] [place], [address], 12/16/2023 20:05:19 12/16/19 24 12/16/2023 CBC/C OMPLE TE BLD COUNT W/DIF F mean red cell hemoglobin 30.4 pg 27.0-3 3.0 Not Available [facility] (Lab) [address] [place], [address], 12/16/2023 20:05:19 12/16/19 24 12/16/2023 CBC/C OMPLE TE BLD COUNT W/DIF F mean RBC HGB concentratio n 32.7 g/dL 31.0-3 6.0 Not Available [facility] (Lab) [address] [place], [address], 12/16/2023 20:05:19 12/16/19 24 12/16/2023 CBC/C OMPLE TE BLD COUNT W/DIF F red cell distribution width 12.4 % 11.8-1 5.5 Not Available [facility] (Lab) [address] [place], [address], 12/16/2023 20:05:19 12/16/19 24 12/16/2023 CBC/C OMPLE TE BLD COUNT W/DIF F platelets 259 x10'3 /uL 150-40 0 Not Available [facility] (Lab) [address] [place], [address], 12/16/2023 20:05:19 12/16/19 24 12/16/2023 CBC/C OMPLE TE BLD COUNT W/DIF F mean platelet volume 11.5 fL 9.0-12 .4 Not Available [facility] (Lab) [address] [facility] [place], [address], 12/16/2023 20:05:19 12/16/19 24 12/16/2023 CBC/C OMPLE TE BLD COUNT W/DIF F neutrophils 50.1 % 39.0-7 2.0 Not Available [facility] (Lab) [address] [place], [address], 12/16/2023 20:05:19 12/16/19 24 12/16/2023 CBC/C OMPLE TE BLD COUNT W/DIF F lymphocytes 35.3 % 16.0-4 7.0 Not Available [facility] (Lab) [address] [place], [address], 12/16/2023 20:05:19 12/16/19 24 12/16/2023 CBC/C OMPLE TE BLD COUNT W/DIF F monocytes 7.4 % 5.0-12 .0 Not Available [facility] (Lab) [address] [place], [address], 12/16/2023 20:05:19 12/16/19 24 12/16/2023 CBC/C OMPLE TE BLD COUNT W/DIF F eosinophils 6.4 % 1.0-7. 0 Not Available [facility] (Lab) [address] [place], [address], 12/16/2023 20:05:19 12/16/19 24 12/16/2023 CBC/C OMPLE TE BLD COUNT W/DIF F basophils 0.7 % 0.0-2. 0 Not Available [facility] (Lab) [address] [place], [address], 12/16/2023 20:05:19 12/16/19 24 12/16/2023 CBC/C OMPLE TE BLD COUNT W/DIF F immature granulocytes 0.1 % 0.00-0 .50 Not Available [facility] (Lab) [address] [place], [address], 12/16/2023 20:05:19 12/16/19 24 12/16/2023 CBC/C OMPLE TE BLD COUNT W/DIF F neutrophils, absolute count 3.36 x10'3 /uL 1.5-8. 0 Not Available [facility] (Lab) [address] [place], [address], 12/16/2023 20:05:19 12/16/19 24 12/16/2023 CBC/C OMPLE TE BLD COUNT W/DIF F lymphocytes, absolute count 2.37 x10'3 /uL 1.07-3 .43 Not Available [facility] (Lab) [address] [place], [address], 12/16/2023 20:05:19 12/16/19 24 12/16/2023 CBC/C OMPLE TE BLD COUNT W/DIF F monocytes, absolute count 0.50 x10'3 /uL 0.29-0 .99 Not Available [facility] (Lab) [address] [place], [address], 12/16/2023 20:05:19 12/16/19 24 12/16/2023 CBC/C OMPLE TE BLD COUNT W/DIF F eosinophils, absolute count 0.43 x10'3 /uL 0.02-0 .53 Not Available [facility] (Lab) [address] [place], [address], 12/16/2023 20:05:19 12/16/19 24 12/16/2023 CBC/C OMPLE TE BLD COUNT W/DIF F basophils, absolute count 0.05 x10'3 /uL 0.01-0 .08 Not Available [facility] (Lab) [address] [place], [address], 12/16/2023 20:05:19 12/16/19 24 12/16/2023 CBC/C OMPLE TE BLD COUNT W/DIF F immature granulocytes ,absolute 0.01 x10'3 /uL 0.00-0 .05 Not Available [facility] (Lab) [address] [place], [address], 12/16/2023 20:05:19 12/16/19 24 12/16/2023 CBC/C OMPLE TE BLD COUNT W/DIF F nucleated red blood cells 0.0 % -0 Not Available [facility] (Lab) [address] [place], [address], 12/16/2023 20:05:19 12/16/19 24 12/16/2023 CBC/C OMPLE TE BLD COUNT W/DIF F NRBC# 0.00 x10'3 /uL Not Available [facility] (Lab) [address] [place], [address], 12/16/2023 20:05:19 12/16/19 24 12/16/2023 URINA LYSIS COMPL ETE/I RIS W/RFX color LIGHT- YELLOW Not Available [facility] (Lab) [address] [place], [address], 12/16/2023 20:33:08 12/16/19 24 12/16/2023 URINA LYSIS COMPL ETE/I RIS W/RFX appear EXTRA TURBID abnormal Not Available [facility] (Lab) [address] [place], [address], 12/16/2023 20:33:08 12/16/19 24 12/16/2023 URINA LYSIS COMPL ETE/I RIS W/RFX specific gravity 1.014 1.001- 1.030 Not Available [facility] (Lab) [address] [place], [address], 12/16/2023 20:33:08 12/16/19 24 12/16/2023 URINA LYSIS COMPL ETE/I RIS W/RFX pH 7.0 pH_un its 5.0-9. 0 Not Available [facility] (Lab) [address] [place], [address], 12/16/2023 20:33:08 12/16/19 24 12/16/2023 URINA LYSIS COMPL ETE/I RIS W/RFX leukocytes NEGATI VE hilda/u L negati ve- Not Available [facility] (Lab) [address] [place], [address], 12/16/2023 20:33:08 12/16/19 24 12/16/2023 URINA LYSIS COMPL ETE/I RIS W/RFX nitrite 1+ negati ve- abnormal Not Available [facility] (Lab) [address] [place], [address], 12/16/2023 20:33:08 12/16/19 24 12/16/2023 URINA LYSIS COMPL ETE/I RIS W/RFX protein NEGATI VE mg/dL negati ve- Not Available [facility] (Lab) [address] [place], [address], 12/16/2023 20:33:08 12/16/19 24 12/16/2023 URINA LYSIS COMPL ETE/I RIS W/RFX glucose NORMAL mg/dL normal - Not Available [facility] (Lab) [address] [place], [address], 12/16/2023 20:33:08 12/16/19 24 12/16/2023 URINA LYSIS COMPL ETE/I RIS W/RFX ketones NEGATI VE mg/dL negati ve- Not Available [facility] (Lab) [address] [place], [address], 12/16/2023 20:33:08 12/16/19 24 12/16/2023 URINA LYSIS COMPL ETE/I RIS W/RFX urobilinogen NORMAL mg/dL normal - Not Available [facility] (Lab) [address] [place], [address], 12/16/2023 20:33:08 12/16/19 24 12/16/2023 URINA LYSIS COMPL ETE/I RIS W/RFX bilirubin NEGATI VE mg/dL negati ve- Not Available [facility] (Lab) [address] [facility] [place], [address], 12/16/2023 20:33:08 12/16/19 24 12/16/2023 URINA LYSIS COMPL ETE/I RIS W/RFX blood NEGATI VE mg/dL negati ve- Not Available [facility] (Lab) [address] [place], [address], 12/16/2023 20:33:08 12/16/19 24 12/16/2023 URINA LYSIS COMPL ETE/I RIS W/RFX white blood cells 0-8 /i??h pfi?? 0-8 Not Available [facility] (Lab) [address] [place], [address], 12/16/2023 20:33:08 12/16/19 24 12/16/2023 URINA LYSIS COMPL ETE/I RIS W/RFX red blood cells NONE /i??h pfi?? 0-4 Not Available [facility] (Lab) [address] [facility] [place], [address], 12/16/2023 20:33:08 12/16/19 24 12/16/2023 URINA LYSIS COMPL ETE/I RIS W/RFX bacteria OCCASI ONAL abnormal Not Available [facility] (Lab) [address] [facility] [place], [address], 12/16/2023 20:33:08 12/16/19 24 12/16/2023 URINA LYSIS COMPL ETE/I RIS W/RFX mucous OCCASI ONAL /i??l pfi?? abnormal Not Available [facility] (Lab) [address] [place], [address], 12/16/2023 20:33:08 12/16/19 24 12/16/2023 URINA LYSIS COMPL ETE/I RIS W/RFX squamous epithelial OCCASI ONAL /i??l pfi?? abnormal Not Available [facility] (Lab) [address] [place], [address], 12/16/2023 20:33:08 12/16/19 24 12/16/2023 URINA LYSIS COMPL ETE/I RIS W/RFX amorphous crystal MODERA TE /i??h pfi?? abnormal Not Available [facility] (Lab) [address] [place], [address], 12/16/2023 20:33:08 12/16/19 24 12/16/2023 COMPR EHENS CATHY METAB OLIC PANEL sodium 139 mmol/ L 137-14 5 Not Available [facility] (Lab) [address] [place], [address], 12/16/2023 21:10:25 12/16/19 24 12/16/2023 COMPR EHENS CATHY METAB OLIC PANEL potassium 4.1 mmol/ L 3.5-5. 1 Not Available [facility] (Lab) [address] [place], [address], 12/16/2023 21:10:25 12/16/19 24 12/16/2023 COMPR EHENS CATHY METAB OLIC PANEL chloride 103 mmol/ L 98-107 Not Available [facility] (Lab) [address] [place], [address], 12/16/2023 21:10:25 12/16/19 24 12/16/2023 COMPR EHENS CATHY METAB OLIC PANEL carbon dioxide 32 mmol/ L 22-30 high Not Available [facility] (Lab) [address] [place], [address], 12/16/2023 21:10:25 12/16/19 24 12/16/2023 COMPR EHENS CATHY METAB OLIC PANEL anion gap 8.1 mmol/ L 14-22 low Not Available [facility] (Lab) [address] [place], [address], 12/16/2023 21:10:25 12/16/19 24 12/16/2023 COMPR EHENS CATHY METAB OLIC PANEL glucose 89 mg/dL 70-99 Not Available [facility] (Lab) [address] [place], [address], 12/16/2023 21:10:25 12/16/19 24 12/16/2023 COMPR EHENS CATHY METAB OLIC PANEL BUN 19 mg/dL 8-19 Not Available [facility] (Lab) [address] [place], [address], 12/16/2023 21:10:25 12/16/19 24 12/16/2023 COMPR EHENS CATHY METAB OLIC PANEL creatinine 0.58 mg/dL 0.66-1 .25 low Not Available [facility] (Lab) [address] [place], [address], 12/16/2023 21:10:25 12/16/19 24 12/16/2023 COMPR EHENS CATHY METAB OLIC PANEL GFR >60 Refer ence Range : [place] ge GFR Healt hy Adult : >60 [...] or ethni c subgr oups, such as Hispa nics. Outsi de the valid ated lilibeth [...] calcu lator is avail able on the [facility] websi te: [email or web address] :[email or web address] cee.layne [email or web address].o rg/pr ofess ional s/kdo qi/gf r_cal culat or Not Available [facility] (Lab) [address] [place], [address], 12/16/2023 21:10:25 12/16/19 24 12/16/2023 COMPR EHENS CATHY METAB OLIC PANEL alkaline phosphatase 76 U/L 38-126 Not Available [facility] (Lab) [address] [place], [address], 12/16/2023 21:10:25 12/16/19 24 12/16/2023 COMPR EHENS CATHY METAB OLIC PANEL alanine aminotransfe rase 25 U/L 0-35 Not Available [facility] (Lab) [address] [place], [address], 12/16/2023 21:10:25 12/16/19 24 12/16/2023 COMPR EHENS CATHY METAB OLIC PANEL aspartate aminotransfe rase 40 U/L 15-37 high Not Available [facility] (Lab) [address] [place], [address], 12/16/2023 21:10:25 12/16/19 24 12/16/2023 COMPR EHENS CATHY METAB OLIC PANEL bilirubin, total 0.60 mg/dL 0.20-1 .30 Not Available [facility] (Lab) [address] [place], [address], 12/16/2023 21:10:25 12/16/19 24 12/16/2023 COMPR EHENS CATHY METAB OLIC PANEL calcium 10.4 mg/dL 8.4-10 .2 high Not Available [facility] (Lab) [address] [place], [address], 12/16/2023 21:10:25 12/16/19 24 12/16/2023 COMPR EHENS CATHY METAB OLIC PANEL total protein 7.3 g/dL 6.3-8. 2 Not Available [facility] (Lab) [address] [place], [address], 12/16/2023 21:10:25 12/16/19 24 12/16/2023 COMPR EHENS CATHY METAB OLIC PANEL albumin 4.5 g/dL 3.0-4. 4 high Not Available [facility] (Lab) [address] [place], [address], 12/16/2023 21:10:25 12/16/19 24 12/16/2023 COMPR EHENS CATHY METAB OLIC PANEL globulin 2.8 g/dL 2.6-4. 2 Not Available [facility] (Lab) [address] [place], [address], 12/16/2023 21:10:25 12/16/19 24 12/16/2023 COMPR EHENS CATHY METAB OLIC PANEL A/G ratio 1.6 ratio 1.0-2. 0 Not Available [facility] (Lab) [address] [place], [address], 12/16/2023 21:10:25 12/16/19 24 12/16/2023 LIPID PANEL cholesterol 150 mg/dL 140-19 9 NIH MILO NSUS RECOM MENDA TION FOR DAVID STERO L: ADULT CHILD LOW RISK: <200 <170 BORDE RLINE : <200- 239 ----- HIGH RISK: >240 >200 Not Available [facility] (Lab) [address] [place], [address], 12/16/2023 21:10:30 12/16/19 24 12/16/2023 LIPID PANEL triglyceride s 93 mg/dL 0-150 NIH MILO NSUS REPOR T RECOM MENDA TION FOR TRIGL YCERI ARIEL: ADULT CHILD LOW RISK: <150 ----- BODER LINE: 150-1 99 ----- HIGH RISK: >200 ----- Not Available [facility] (Lab) [address] [place], [address], 12/16/2023 21:10:30 12/16/19 24 12/16/2023 LIPID PANEL HDL cholesterol 67 mg/dL 40- Not Available [facility] (Lab) [address] [place], [address], 12/16/2023 21:10:30 12/16/19 24 12/16/2023 LIPID PANEL [...] WILL NOT BE REPOR LINO. Not Available [facility] (Lab) [address] [place], [address], 12/16/2023 21:10:30 12/16/19 24 12/16/2023 MAGNE SIUM magnesium 2.0 mg/dL 1.6-2. 3 Not Available [facility] (Lab) [address] [place], [address], 12/16/2023 21:10:35 12/16/19 24 12/16/2023 VITAM IN D 25-HY DROXY vd25oh 42.8 NG/mL 30-100 Vitam in D Statu s: Defic ient: <20 ng/mL Insuf ficie nt: 20-29 ng/mL Suffi cient : 30-10 0 ng/mL Not Available [facility] (Lab) [address] [place], [address], 12/16/2023 21:10:55 12/16/19 24 12/16/2023 TSH W/REF ESPINOZA FT4 TSH with reflex free T4 1.770 uIU/m L 0.465- 4.680 Not Available [facility] (Lab) [address] [place], [address], 12/16/2023 21:11:16 12/16/19 24 12/16/2023 VITAM IN B12 (AMOS SHRUTI ) vb12 359 pg/mL 239-93 1 Not Available [facility] (Lab) [address] [place], [address], 12/16/2023 21:45:53 12/16/19 24 12/16/2023 FOLAT E, SERUM /PLAS MA folate 13.4 NG/mL 2.76-2 0.0 Not Available [facility] (Lab) [address] [place], [address], 12/16/2023 21:45:58 12/16/19 24 12/16/2023 HEMOG LOBIN A1C HA1C 6.0 % 4.0-6. 0 Diabe reema Scree esdras Crite kirby: <5.7% Consi stent with absen ce of diabe reema 5.7-6 .4% Consi stent with incre ased risk for diabe reema (pred iabet es) >OR=6 .5% Consi stent with diabe reema REFER ENCE: Diabe reema Care 2016, 39(Ernandez ppl.1 ):s13 -s22 Not Available [facility] (Lab) [address] [place], [address], 12/16/2023 22:00:18 03/20/20 24 03/20/2024 NUSRAT ALVARADO RM(PT H)INT ACT-W /O CA intact parathyroid hormone 41.6 pg/mL 24.0-7 8.0 Pleas e note new refer ence range effec tive 10/02 . Not Available [facility] (Lab) [address] [place], [address], 03/20/2024 10:04:58 03/20/20 24 03/20/2024 HEMOG LOBIN A1C HA1C 5.9 % 4.0-6. 0 Diabe reema Scree esdras Crite kirby: <5.7% Consi stent with absen ce of diabe reema 5.7-6 .4% Consi stent with incre ased risk for diabe reema (pred iabet es) >OR=6 .5% Consi stent with diabe reema REFER ENCE: Diabe reema Care 2016, 39(Ernandez ppl.1 ):s13 -s22 Not Available [facility] (Lab) [address] [place], [address], 03/20/2024 12:37:43 06/23/20 24 06/23/2024 NUSRAT Brennan HORM (PTH) INT.W /CA intact parathyroid hormone 11.1 pg/mL 24-78 low Not Available [facility] (Lab) [address] [place], [address], 06/23/2024 12:57:00 06/23/20 24 06/23/2024 PARAT MILLIE Brennan HORM (PTH) INT.W /CA calcium 9.8 mg/dL 8.4-10 .2 Not Available [facility] (Lab) [address] [place], [address], 06/23/2024 12:57:00 06/23/20 24 06/23/2024 HEMOG LOBIN A1C HA1C 6.1 % 4.0-6. 0 high Diabe reema Jesus Manuel dewitt Crite kirby: <5.7% Consi stent with absen ce of diabe reema 5.7-6 .4% Consi stent with incre ased risk for diabe reema (pred iabet es) >OR=6 .5% Consi stent with diabe reema REFER ENCE: Diabe reema Care 2016, 39(Ernandez ppl.1 ):s13 -s22 Not Available [facility] ([facility]) [address] [place], [address], 06/23/2024 13:17:35 12/20/19 24 12/20/2023 jesus manuel dewitt breas t jody, bilat [facility] [address] [place] [address] [phone] Patien t Name: ELDERS , DORI Access ion #: [id number] Sex: F : 1960 6 Dictat ed By: Karlene Gambino Attend ing Physic tito: BRIAN BELLA Orderi ng Physic tito: BRIAN BELLA Exam Date: 2023 12:13 PM Exam Name: MG SCRN BREAST JODY BILAT Admitt ing Diagno sis(es ): SCREEN ING MAMMOG DECLAN WITH TOMOSY NTHESI S: REASON FOR EXAM: SCREEN ING DARCY COMPAR MELVA: 23, 022 TECHNI QUE: Bilate ral CC and [...] 33 PM Page 1 [email or web address] [facility] (Imaging) [address] [place], [address], 12/24/2023 16:50:19 01/04/20 24 01/04/2024 DEXA No observ ation record ed. [facility] [address] [place], [address], 04/04/2024 10:25:48 Result Notes None recorded. Problems Name Problem SNOMED Code Status Onset Date Resolution Date Notes Provider Name and Address Organization Details Recorded Time Screening mammograph y Active 2021 Not Available [facility] 3 02:51:32 Adult health examinatio n Active 2021 Not Available [facility] 3 02:51:32 Screening for malignant neoplasm of colon Active 2021 Not Available [facility] 3 02:51:32 Screening for disorder Active 2021 Not Available [facility] 3 02:51:33 Kyphosis deformity of spine 783045924 Active 2021 Not Available [facility] 3 02:51:33 Past history of gestationa l diabetes mellitus 686235661 Active 2021 Not Available [facility] 3 02:51:33 Cystocele 097538353 Active 2021 Not Available [facility] 3 02:51:32 Onychomyco sis of toenails 590291029 Active 2021 Not Available [facility] 3 02:51:33 Chronic low back pain 516657876 Active 2021 Not Available [facility] 3 02:51:32 Osteopenia 622156112 Active 2021 Not Available [facility] 3 02:51:33 Hyperlipid emia 64277876 Active 2021 Not Available [facility] 3 02:51:34 Abnormal cervical Papanicola ou smear 202218739 Active 2021 Not Available [facility] 3 02:51:33 Onychomyco sis 285825986 Active 2021 Not Available [facility] 3 02:51:33 Degenerati on of lumbar interverte bral disc 55509124 Active 2021 Not Available [facility] 3 02:51:32 Prolapsed lumbar interverte bral disc 988538527 Active 2021 Not Available [facility] 3 02:51:31 Stenosis of spinal canal due to interverte bral disc 389498191 Active 2021 Not Available [facility] 3 02:51:31 Prediabete s 957659556 Active 2022 Marcos Bella MD [address], [address], [place], [address] , [employer] 3 11:39:00 Chronic idiopathic constipati on 09586601 Active 2023 Marcos Bella MD [address], [address] [address], [place], [address] , [place] [employer] 4 17:50:00 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 Please review these documents and add these problems to the patient's chart manually as needed. Problem Notes None recorded. Procedures Surgical History Date Name Laterality Status Provider Name and Address Organization Details Recorded Time 12/17/19 23 Most Recent Mammogram completed Alana Cox RN [facility] [employer] 12/22/2023 09:47:58 11/25/19 23 Date of Last Pap Smear completed Alnaa Cox RN [facility] 12/22/2023 09:47:49 09/06/19 22 Most Recent Bone Density completed Alana Cox RN [facility] 11/24/2022 08:07:04 09/06/19 22 Date of Last Colonoscopy completed Alana Cox RN [facility] [employer] 11/24/2022 08:07:08 procedure on appendix completed Not Available [facility] 11/04/2022 02:40:06 Imaging Results None recorded. Procedure Notes None recorded. Medical Equipment None Reported. Allergies Allergen ID Allergen Name Allergen Category Reaction Reaction Severity Criticality Documentation Date Start Date Code Code System Note Provider Name and Address Organization Details Recorded Time 4985 chocolate flavor food,medi cation Not available Not available Not available 11/04/2022 Blood in stool and sinus infec tion. Not Available [facility] 3 03:06:00 27098 metformin medicatio n rash moderate Not available 04/04/2024 6809 RxNorm Marcos Bella MD [address] [address], [place], [address] [place] [address] [employer] 4 10:28:13 Medications Name Sig Start Date Stop Date Status Note LastModified by Organization Details LastModified Time cyclobenz aprine 10 mg tablet TAKE 1 TABLET BY MOUTH EVERY 12 HOURS NEEDED active Not Available Not Available No t Available latanopro st 0.005 % eye drops INSTILL 1 DROP INTO RIGHT EYE EVERY NIGHT AT BEDTIME 07/19 completed Not Available Not Available Not Available biotin 800 mcg tablet Take by oral route. 07/19 completed Not Available Not Available Not Available triamcino lone acetonide 0.5 % topical cream 1 APPLIC TOPICALL Y TWICE A DAY FOR ECZEMA FOR 2 WEEKS 07/19 completed Not Available Not Available Not Available atorvasta tin 10 mg tablet TAKE 1 TABLET BY MOUTH EVERYDAY AT BEDTIME active Not Available Not Available No t Available Diphenhyd ramine HCl (Sleep) 50 mg capsule Take 1 capsule every 4 hours by oral route. active Not Available Not Available No t Available meloxicam 7.5 mg tablet TAKE 1 TABLET BY MOUTH EVERY 12 HOURS NEEDED active Not Available Not Available No t Available Vitamin D3 10 mcg (400 unit) tablet [...] oral route as needed for 90 days. 07/19 completed Not Available Not Available Not Available polyethyl neida glycol 3350 17 gram/dose oral powder MIX AND DRINK 17 GRAMS BY MOUTH ONCE DAILY NEEDED. active Not Available Not Available No t Available estradiol 0.01% (0.1 mg/gram) vaginal cream INSERT [...] completed Not Available Not Available Not Available Benadryl 25 mg capsule Take 1 capsule every 4 hours by oral route. active Not Available Not Available No t Available Asprin Ec Low Dose 81 mg tablet,de layed release Take 1 tablet every day by oral route. 2021 active Not Available Not Available Not Avai lable Vitamin C 07/19 completed Not Available Not Available Not Available Calcium 600 12/21 completed Not [...] Available Not Available Not Available Complete Multivita min-Pickle Sorter al 12/15 completed Not Available Not Available Not Available mecobalam in (vitamin B12) 1,000 mcg disintegr ating tablet,ernandez blingual Place by sublingu al route. active Not Available Not Available No t Available Fish Oil 1,000 mg (120 mg-180 mg) capsule Take by oral route. 07/19 completed Not Available Not Available Not Available ascorbic acid (vitamin C) 1,000 mg capsule Take by oral route. active Not Available Not Available No t Available biotin 5,000 mcg chewable tablet Take by oral route. active Not Available Not Available No t Available Vitals Date Recorded Body height Body mass index (BMI) Body weight Body temperature Heart rate Respiratory rate Oxygen saturation Pain severity - 0-10 verbal numeric rating [Score] - Reported Systolic And Diastolic Provider Name and Address Organization Details Last Updated DateTime 4 162.56 cm 19.6 kg/m2 53880.9 8 g 96.7 [degF] 92 /min 20 /min 97 % 0 142/82 mm[Hg] Alana Cox RN [facility] [employer] 4 09:46:18 Date Recorded Body height Body mass index (BMI) Body weight Body temperature Heart rate Respiratory rate Oxygen saturation Systolic And Diastolic Provider Name and Address Organization Details Last Updated DateTime 4 162.56 cm 19.9 kg/m2 05924.0 6 g 98.1 [degF] 90 /min 20 /min 98 % 136/80 mm[Hg] Elias Flores [facility] [employer] 4 12:54:04 Date Recorded Body height Body mass index (BMI) Body weight Body temperature Heart rate Respiratory rate Oxygen saturation Systolic And Diastolic Provider Name and Address Organization Details Last Updated DateTime 4 162.56 cm 19.6 kg/m2 39024.2 3 g 97.9 [degF] 82 /min 16 /min 98 % 122/70 mm[Hg] Elias Flores [facility] 4 10:23:01 Date Recorded Body height Body mass index (BMI) Body weight Body temperature Heart rate Oxygen saturation Systolic And Diastolic Provider Name and Address Organization Details Last Updated DateTime 4 162.56 cm 19.7 kg/m2 23553.1 2 g 97.4 [degF] 90 /min 98 % 146/84 mm[Hg] Gina Heath RN [facility] 4 14:53:23 Date Recorded Body height Body mass index (BMI) Body weight Body temperature Provider Name and Address Organization Details Last Updated DateTime 07/19/2025 157.48 cm 23.2 kg/m2 93005.51 g 97.5 [degF] Megha Steele RN [facility] 07/19/2025 14:23:47 Social History Question Answer Notes LastModified by Organizat ion Details LastModified Time Tobacco Smoking Status Never Smoker Not Available [facility] 11/04/2022 02:31:06 Do You Have An Advance Directive? No Will MIGRATION.62487 17971 Information not available 11/04/2022 Do You Wear A Helmet When Biking? No MIGRATION.05273 54972 Information not available 11/04/2022 Is Blood Transfusion Acceptable In An Emergency? Yes Information not available 11/24/2022 What Is Your Level Of Caffeine Consumption? Moderate MIGRATION.79910 62350 Information not available 11/04/2022 What Is Your Code Status? DNR Information not available 11/24/2022 In The 14 Days Before Symptom Onset, Have You Had Close Contact With A Laboratory-confir med COVID-19 While That Case Was Ill? No MIGRATION.27455 59187 Information not available 11/04/2022 In The 14 Days Before Symptom Onset, Have You Had Close Contact With A Person Who Is Under Investigation For COVID-19 While That Person Was Ill? No MIGRATION.90068 05426 Information not available 11/04/2022 What Type Of Diet Are You Following? REGULAR MIGRATION.75176 33657 Information not available 11/04/2022 What Is The Highest Grade Or Level Of School You Have Completed Or The Highest Degree You Have Received? [id number] MIGRATION.44458 41961 Information not available 11/04/2022 How Many Days Of Moderate To Strenuous Exercise, Like A Brisk Walk, Did You Do In The Last 7 Days? 7 Information not available 11/24/2022 Have There Been Any Changes To Your Family Or Social Situation? Yes MIGRATION.10595 58749 Information not available 11/04/2022 What Is The Fluoride Status Of Your Home? Unknown MIGRATION.20806 36539 Information not available 11/04/2022 Are There Any Guns Present In Your Home? No MIGRATION.79338 93491 Information not available 11/04/2022 Do You Use Insect Repellent Routinely? Yes MIGRATION.64534 02265 Information not available 11/04/2022 Where Do You Live? [place]House MIGRATION.71525 79936 Information not available 11/04/2022 Do You Have A Medical Power Of Stem Roller? No MIGRATION.25570 36338 Information not available 11/04/2022 How Many Children Do You Have? 2 Information not available 11/24/2022 Do You Have Any Pets? Yes MIGRATION.48364 96801 Information not available 11/04/2022 Do You Use Protection During Sex? No Information not available 11/24/2022 What Is Your Relationship Status? MIGRATION.21880 42327 Information not available 11/04/2022 Do You Use Your Seat Belt Or Car Seat Routinely? Yes MIGRATION.49573 87592 Information not available 11/04/2022 Are You Sexually Active? Yes Information not available 11/24/2022 Do You Have Smoke And Carbon Monoxide Detectors In Your Home? No MIGRATION.88607 58789 Information not available 11/04/2022 Are You Passively Exposed To Smoke? No MIGRATION.94062 59860 Information not available 11/04/2022 Are There Any Smokers In Your House? No MIGRATION.34166 34246 Information not available 11/04/2022 Do You Participate In Social Media? No MIGRATION.08649 37284 Information not available 11/04/2022 What Types Of Sporting Activities Do You Participate In? NA MIGRATION.56646 47412 Information not available 11/04/2022 Do You Use Sunscreen Routinely? Yes MIGRATION.61928 24569 Information not available 11/04/2022 Have You Recently Traveled Abroad? No MIGRATION.20970 32548 Information not available 11/04/2022 Are You Currently In School? No MIGRATION.03017 35988 Information not available 11/04/2022 Do You Have Any Dietary Restrictions? No MIGRATION.83603 50418 Information not available 11/04/2022 Sex: Female Functional Status Question Answer Note LastModified by Organizat ion Details LastModified Time Do you use any illicit or recreational drugs? No MIGRATION.2670009 026 Information not available 11/04/2022 Do you or have you ever used any other forms of tobacco or nicotine? No MIGRATION.4239760 026 Information not available 11/04/2022 What is your level of alcohol consumption? 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 Moderate MIGRATION.8204988 026 Information not available 11/04/2022 Mental Status Question Answer Note LastModified by Organizat ion Details LastModified Time Do you feel stressed (tense, restless, nervous, or anxious, or unable to sleep at night)? [id number] MIGRATION.[id number] 6 Information not available 11/04/2022 Family History Relationship Description Onset Age of this Age Resolved Age Notes LastModified by Organization Details LastModified Time Mother Diabetes mellitus MIGRATION.345 [id number] Not available 11/04/2022 02:40:10 Brother Diabetes mellitus MIGRATION.918 [id number] Not available 11/04/2022 02:40:10 Sister Diabetes mellitus MIGRATION.177 [id number] Not available 11/04/2022 02:40:10 Father Cirrhosis of liver MIGRATION.514 1100891 Not available 11/04/2022 02:40:10 Notes:NO ENT Medical History Condition Response BLINDNESS N RHEUMATIC FEVER N KIDNEY STONES N BLADDER PROBLEMS N MRSA N OTHER # 1 N POLIO N LUNG DISEASE/DISORDER N HISTORY OF DRUG ABUSE N RADIATION / CHEMOTHERAPY N COPD N Other # 2 N BLOOD DISEASES N SURGERY N EAR OR HEARING PROBLEMS N MUMPS N SHINGLES N FEMALE PROBLEMS / INFECTIONS N DEPRESSION (INCLUDING POST ) N BOWEL PROBLEMS N STROKE/TIA N THYROID DISEASE N ULCERS N BENIGN PROSTATIC HYPERPLASIA N MEASLES N CERVICALGIA N TB SKIN TEST N HYPOTENSION N MYOCARDIAL INFARCTION N PARAPELGIA N OBESITY [...] GLAUCOMA N FOOT PROBLEM N DIVERTICULITIS N SLEEP APNEA N CHICKENPOX N ALLERGIES/HAYFEVER N INFECTIOUS DISEASE N PROSTATE N HEART ARRHYTHMIA N INSOMNIA N HIGH CHOLESTEROL / HYPERLIPIDEMIA N HYPERTHYROIDISM N EYE PROBLEMS N EATING DISORDER N EDEMA N CHRONIC PAIN SYNDROME N CONSTIPATION N CAROTID BLOCKAGE N BACK / NECK PROBLEMS N HAVE YOU BEEN HOSPITALIZED OR SEEN IN [facility] IN THE PAST YEAR ? N [...] N PAIN N HERPES N DEMENTIA N SEIZURES/EPILEPSY N HEADACHES/MIGRAINES N VASCULAR DISEASE N PACEMAKER N DIZZINESS N KIDNEY DISEASE N HEART DISEASE/HEART PROBLEMS N SCARLET FEVER N MULTIPLE SCLEROSIS N MENTAL DISORDER/ILLNESS N DEVELOPMENTAL OR BEHAVIORAL DISORDERS N CARDIAC ARRHYTHMIA N CANCER: SPECIFY N PNEUMONIA N Gall Stones N ATRIAL FIBRILLATION N PULMONARY EMBOLISM N AUTOIMMUNE DISEASE N [...] quadrivalent, PF 06/10/2023 completed [facility]USANNA [facility] 06/10/2023 09:30:55 Past Encounters Encounter ID Performer Location Encounter Start Date Encounter Closed Date Diagnosis/Indication Diagnosis SNOMED-CT Code Diagnosis ICD10 Code Diagnosis IMO Codes Diagnosis Note [id number] Marcos Bella MD [facility] [address] [place] [address] 10/28/2021 00:00:00 10/28/2021 17:58:12 [id number] Marcos Bella MD [facility] [address] [place] [address] 11/12/2021 00:00:00 11/12/2021 16:02:58 [id number] Marcos Bella MD [facility] [address] [facility] [place] [address] 11/19/2021 00:00:00 11/19/2021 17:10:02 [id number] [facility] [place] [address] [place] [address] 12/04/2021 00:00:00 12/04/2021 18:21:32 [id number] Bella MD [facility] [address] [place] [address] 12/10/2021 00:00:00 12/10/2021 17:09:13 [id number] Bella MD [facility] [address] [place] [address] 01/08/2022 00:00:00 01/08/2022 17:19:14 [id number] [address] [place] [address] 02/19/2022 00:00:00 02/19/2022 16:58:33 [id number] Bella MD [facility] [address] [place] [address] 05/21/2022 00:00:00 05/21/2022 17:26:01 [id number] Marcos Bella MD [address] [address] 06/11/2022 00:00:00 06/11/2022 13:04:24 [id number] Marcos Bella MD [address] [address] 07/27/2022 00:00:00 07/27/2022 09:31:48 [id number] Alana Castro NP [address] [address] 11/24/2022 07:52:12 11/24/2022 08:37:51 Gynecologic examination 32208012 Z01.419 Encouraged well balanced meals, active lifestyle, and routine vision and dental appts. Screening mammography 24 098006 Z12.31 mammogram ordered 11/24/22 [id number] Marcos Bella MD [address] [address] 12/15/2022 11:43:22 12/15/2022 12:10:59 Adult health examination 800388976 Z00.00 Chronic low back pain 27 5789340 M54.50 Kyphosis d eformity of spine 172245649 M40.209 Osteopenia 649824654 M85 .80 Diabetes m ellitus screening 374222855 Z13.1 [id number] Marcos Bella MD [address] [address] 12/31/2022 11:35:57 12/31/2022 12:03:54 Chronic low back pain 227884470 M54.50 Kyphosis d eformity of spine 184787736 M40.209 Osteopenia 759431560 M85 .80 Prediabetes 329053256 R7 3.03 Prolapsed lumbar intervertebral disc 125262030 M51.26 Stenosis o f spinal canal due to intervertebral disc 809868511 M99.59 [id number] Marcos Bella MD [address] [address] 03/10/2023 08:49:05 03/10/2023 09:13:50 Prediabetes 577590212 R73.03 Chronic low back pain 27 8954509 M54.50 Kyphosis d eformity of spine 965833578 M40.209 Osteopenia 315093627 M85 .80 Prolapsed lumbar intervertebral disc 092498066 M51.26 Stenosis o f spinal canal due to intervertebral disc 691225648 M99.59 [id number] Marcos Bella MD [address] [address] 06/10/2023 08:51:06 06/10/2023 09:23:54 Prediabetes 956026640 R73.03 Chronic low back pain 27 6046675 M54.50 Kyphosis d eformity of spine 321431801 M40.209 Osteopenia 764649735 M85 .80 Prolapsed lumbar intervertebral disc 497714751 M51.26 Stenosis o f spinal canal due to intervertebral disc 058221661 M99.59 Administra tion of influenza vaccine 97966371 Z23 [id number] Marcos Bella MD [address] [address] 09/16/2023 17:21:29 09/16/2023 17:56:43 Prediabetes 048222751 R73.03 Chronic low back pain 27 3461081 M54.50 Kyphosis d eformity of spine 254889957 M40.209 Osteopenia 432073638 M85 .80 Prolapsed lumbar intervertebral disc 450100174 M51.26 Stenosis o f spinal canal due to intervertebral disc 798231333 M99.59 Chronic id iopathic constipation 88936386 K59.04 [id number] Marcos Bella MD [address] [address] 12/16/2023 11:13:43 12/16/2023 11:53:41 Prediabetes 455668362 R73.03 Chronic low back pain 27 5618392 M54.50 Kyphosis d eformity of spine 168701105 M40.209 Osteopenia 118655240 M85 .80 Prolapsed lumbar intervertebral disc 149182355 M51.26 Stenosis o f spinal canal due to intervertebral disc 016312896 M99.59 Chronic id iopathic constipation 25986036 K59.04 Adult heal th examination 164905438 Z00.00 Screening mammography 24 824062 Z12.31 [id number] Marcos Bella MD [address] [address] 12/22/2023 09:30:37 12/22/2023 10:33:39 Screening for osteoporosis 958027416 Z13.820 Gynecologi c examination 95992811 Z01.419 Z01.027 [id number] Marcos Bella MD [address] [address] 01/04/2024 12:45:25 01/04/2024 13:08:11 Prediabetes 711569087 R73.03 Chronic low back pain 27 7171707 M54.50 Kyphosis d eformity of spine 714472133 M40.209 Chronic id iopathic constipation 68565687 K59.04 Osteopenia 369514621 M85 .80 Prolapsed lumbar intervertebral disc 201149287 M51.26 Stenosis o f spinal canal due to intervertebral disc 330566236 M99.59 Hypercalcemia 45556559 E 83.52 [id number] Marcos Bella MD [address] [address] 04/04/2024 10:15:14 04/04/2024 10:43:35 Prediabetes 281951352 R73.03 Diet controlled Chronic low back pain 27 8382745 M54.50 Kyphosis d eformity of spine 412758172 M40.209 Chronic id iopathic constipation 44658898 K59.04 Osteopenia 029486484 M85 .80 Prolapsed lumbar intervertebral disc 847497569 M51.26 Stenosis o f spinal canal due to intervertebral disc 057541766 M99.59 Hypercalcemia 27611745 E 83.52 [id number] KIMBERLEY MckinleyP-C [facility] Primary [facility] Jackie rodriguez [address] [facility] [address] [place] [address] 06/20/2024 14:35:09 06/20/2024 15:29:52 Hyperlipidemia 76124695 E78.5 Doing well on current medication s, will refill as needed.Lab s are up to date. Hypercalcemia 14972407 E 83.52 Prediabetes 535669877 R7 3.03 Chronic low back pain 27 7598840 M54.50 [id number] Raji Singh MD [facility] [place] [address] [place] [address] 07/19/2025 13:43:54 07/24/2025 15:51:29 Impacted cerumen in left ear 0830525886 870523 H61.22 7992601 Health Concerns Section Related Observation LastModified by Organization Detai ls LastModified Time None Recorded Concern Status LastModified by Organization Details LastModified Time None Recorded Advance Directives Directive N: will Payers Insurance Date Sequence Insurance Name Policy Number Policy Kimball Covered Member ID Kimball Member ID Guarantor Name 12/20/2023 3 [facility] (MEDICARE REPLACEMENT/A DVANTAGE - HMO) Dori Elders [id number] Dori Elders 11/04/2023 2 [facility] PL[facility] - DUAL (MEDICARE - MEDICAID REPLACEMENT HMO) Dori Elders [id number] Dori Elders 02/21/2024 2 [place] [employer] [place] [employer] Dori Elders [id number] Dori Elders 06/20/2024 1 [facility] (MEDICARE REPLACEMENT/A DVANTAGE - PPO) [id number] Dori K Elders [id number] Dori Elders 01/06/2024 3 [facility] - DOS ON OR AFTER 21 (MEDICAID REPLACEMENT - HMO) Dori Elders [id number] Dori Elders 11/04/2023 1 [place] Dori Elders [id number] Dori Elders 07/19/2025 1 [facility] (MEDICARE REPLACEMENT/A DVANTAGE - HMO) [id number] Dori Machados [id number] Dori Elders 04/05/2024 1 [place] Dori Wagoner Elders [id number] Dori Elders 02/23/2024 2 [facility] - DOS ON OR AFTER 2020 - DUAL ELIGIBLE (MEDICARE REPLACEMENT/A DVANTAGE - HMO) Dori Machados [id number] Dori Elders 12/20/2023 3 [place] Dori Wagoner Elders [id number] Dori Elders 12/22/2023 1 [facility] (MEDICARE REPLACEMENT/A DVANTAGE - HMO) [id number] Dori Wagoner Elders [id number] Dori Elders 01/06/2024 3 [facility] - DOS PRIOR TO 2021 (MEDICAID REPLACEMENT - HMO) Dori Machados [id number] Dori Elders 01/06/2024 3 [facility] PLAN - DUAL (MEDICARE - MEDICAID REPLACEMENT HMO) Dori Machados [id number] Dori Elders 11/04/2023 1 [facility] (O) Dori Wagoner Elders [id number] Dori Elders 11/04/2023 2 [facility] - DOS ON OR AFTER 21 (MEDICAID REPLACEMENT - HMO) Dori Elders [id number] Dori Elders 04/05/2024 3 [facility] - DOS ON OR AFTER 21 (MEDICAID REPLACEMENT - HMO) Dori Elders [id number] Dori Elders 07/19/2025 1 [facility] (MEDICARE REPLACEMENT/A DVANTAGE - HMO) [id number] Dori Machados [id number] Doir Machados Notes Date Note Type Note Provider Name and Address Organization Details Recorded Time 12/22/2023 text/html Pap/PelvicReport ed by PatientHPIFor associated factors, patient reportsprior abnormal pap smearbut reportsat least three pap smears in past 7 years,low risk sexual history, andup to date mammogram. For context, patient reportsappt for screening pap/pelvic/breast exam.Prolapsed vaginal wall, patient currently utilizing vaginal abx for cervix infection MIMI Quach [address], [place], [address], [employer] 12/22/2023 10:18:27 01/04/2024 text/html Pt is here for f/u on her annual labs. Doing overall well. Denies any problem with meds. Denies any new concerns.Pt says her back pain is much improved compared to before and denies any problem with meds. Denies any incontinence.Pt has done PT for her back pain and is doing home exercises too. Marcos Bella MD [address], [address] [address], [place], [address], [employer] 01/04/2024 13:02:27 04/04/2024 text/html Pt is here [...] home exercises too. Marcos Bella MD [address], [address] [address], [place], [address], [employer] 04/04/2024 10:40:56 06/20/2024 text/html ROS as noted in the HPI Patient is a 63 year old female that presents to the office to establish care with new PCP, patient previously saw Dr. Bella in [place]. Patient is doing well on current medications, has no concerns at this time including chest pain and shortness of breath, nausea vomiting and diarrhea. ROXANN Mckinley [address], [place], [address], [employer] [facility] [employer] 06/23/2024 01:08:10 07/19/2025 text/html vania Singh MD [address], [place], [address], [employer] [facility] [employer] 07/19/2025 14:35:10 OBGyn Episode No OBEpisode recorded.
--- OUTSIDE RECORDS SUMMARY | 2025-08-24 09:22 | XMS_ITS | Continuity of Care Document ---
Author Organization [place] [facility], [facility] Luis Angel Alvarez Address [address] [place] [address] Care Team Providers Care Cover Operator Name Role Phone [place] Primary Care Provider [phone] Assessment No assessment recorded. Plan of Treatment Reminders Order Date Submit Date Provider Last Modified By Organization Details Last Modified Time Details Appointments None recorded. Lab None recorded. Referral None recorded. Procedures removal impacted cerumen requiring instrumenta tion (PROC) 2024 025 [email or web address] Not available 5 16:42:31 Surgeries None recorded. Imaging None recorded. Medication Orders None recorded. Patient TargetsNo targets recorded. Patient InstructionsNo instructions recorded. Reason for Referral None Reported. Problems Name Problem SNOMED Code Status Onset [...] [facility] 3 02:51:33 Kyphosis deformity of spine 935406863 Active 2021 Not Available [facility] 3 02:51:33 Past history of gestationa l diabetes mellitus 259506376 Active 2021 Not Available [facility] 3 02:51:33 Cystocele 032292374 Active 2021 Not Available [facility] 3 02:51:32 Onychomyco sis of toenails 606963179 Active 2021 Not Available [facility] 3 02:51:33 Chronic low back pain 169175792 Active 2021 Not Available [facility] 3 02:51:32 Osteopenia 367451399 Active 2021 Not Available [facility] 3 02:51:33 Hyperlipid emia 19842637 Active 2021 Not Available [facility] 3 02:51:34 Abnormal cervical Papanicola ou smear 677172011 Active 2021 Not Available [facility] 3 02:51:33 Onychomyco sis 256524279 Active 2021 Not Available [facility] 3 02:51:33 Degenerati on of lumbar interverte bral disc 52633171 Active 2021 Not Available [facility] 3 02:51:32 Prolapsed lumbar interverte bral disc 604044450 Active 2021 Not Available [facility] 3 02:51:31 Stenosis of spinal canal due to interverte bral disc 612390808 Active 2021 Not Available [facility] 3 02:51:31 Prediabete s 421928142 Active 2022 Marcos Bella MD [address], [place], [address] , [employer] [facility] [employer] [facility] 3 11:39:00 Chronic idiopathic constipati on 33201541 Active 2023 Marcos Bella MD [address], [place], [address] , [employer] [facility] [employer] [facility] 4 17:50:00 Hypercalce gretta 79790598 Active 2023 Marcos Bella MD [address], [place], [address] , [employer] [facility] [employer] [facility] 4 12:57:44 Impacted cerumen in left ear 4544299135722 101 Active 2024 Raji Singh MD [address], [address] , [facility] [employer] [facility] 5 14:34:34 Notes:Some problems listed i n Documents: #[id number], #[id number] could not be added to this patient's chart. Please review these documents and add these problems to the patient's chart manually as needed. Problem Notes None recorded. Procedures Surgical History Date Name Laterality Status Provider Name and Address Organization Details Recorded Time 12/17/19 23 Most Recent Mammogram completed Alana Cox RN [facility] [employer] [facility] 12/22/2023 09:47:58 11/25/19 23 Date of Last Pap Smear completed Alana Cox RN [facility] 12/22/2023 09:47:49 09/06/19 22 Most Recent Bone Density completed Alana Cox RN [facility] [employer] [facility] 11/24/2022 08:07:04 09/06/19 22 Date of Last Colonoscopy completed Alana Cox RN [facility] [employer] [facility] 11/24/2022 08:07:08 procedure on appendix completed Not Available [facility] 11/04/2022 02:40:06 Imaging Results None recorded. Procedure Notes None recorded. Medical Equipment None Reported. Allergies Allergen ID Allergen Name Allergen Category Reaction Reaction Severity Criticality Documentation Date Start Date Code Code System Note Provider Name and Address Organization Details Recorded Time 4985 chocolate flavor food,medi cation Not available Not available Not available 11/04/2022 Blood in stool and sinus infec tion. Not Available [facility] 3 03:06:00 91123 metformin medicatio n rash moderate Not available 04/04/2024 6809 RxNorm Marcos Bella MD [address] [facility], [address] [place] [address], [place], [address], [facility] [employer] [facility] 4 10:28:13 Medications Name Sig Start Date [...] Available Not Available Not Available Complete [employer] Operator al 12/15 completed Not Available Not Available Not Available mecobalam in (vitamin B12) 1,000 mcg disintegr ating tablet,grant blingual Place by sublingu al route. active [...] Updated DateTime 07/19/2025 157.48 cm 23.2 kg/m2 58311.51 g 97.5 [degF] Megha Steele RN [place] [facility] [place] [facility] 07/19/2025 14:23:47 Social History Question Answer Notes LastModified by Organizat ion Details LastModified Time Tobacco Smoking Status Never Smoker Not Available [facility] 11/04/2022 02:31:06 Do You Have An Advance Directive? No Will MIGRATION.60299 17251 Information not available 11/04/2022 Do You Wear A Helmet When Biking? No MIGRATION.90799 79863 Information not available 11/04/2022 Is Blood Transfusion Acceptable In An Emergency? Yes Information not available 11/24/2022 What Is Your Level Of Caffeine Consumption? Moderate MIGRATION.49771 73025 Information not available 11/04/2022 What Is Your Code Status? DNR Information not available 11/24/2022 In The 14 Days Before Symptom Onset, Have You Had Close Contact With A Laboratory-confir med COVID-19 While That Case Was Ill? No MIGRATION.32640 59776 Information not available 11/04/2022 In The 14 Days Before Symptom Onset, Have You Had Close Contact With A Person Who Is Under Investigation For COVID-19 While That Person Was Ill? No MIGRATION.46873 18398 Information not available 11/04/2022 What Type Of Diet Are You Following? REGULAR MIGRATION.72443 63354 Information not available 11/04/2022 What Is The Highest Grade Or Level Of School You Have Completed Or The Highest Degree You Have Received? [id number] MIGRATION.59419 80896 Information not available 11/04/2022 How Many Days Of Moderate To Strenuous Exercise, Like A Brisk Walk, Did You Do In The Last 7 Days? 7 Information not available 11/24/2022 Have There Been Any Changes To Your Family Or Social Situation? Yes MIGRATION.68038 90918 Information not available 11/04/2022 What Is The Fluoride Status Of Your Home? Unknown MIGRATION.24414 92688 Information not available 11/04/2022 Are There Any Guns Present In Your Home? No MIGRATION.69158 67800 Information not available 11/04/2022 Do You Use Insect Repellent Routinely? Yes MIGRATION.64701 26733 Information not available 11/04/2022 Where Do You Live? [place] MIGRATION.80066 30737 Information not available 11/04/2022 Do You Have A Medical Power Of Cleaning Machine Operator? No MIGRATION.55958 86335 Information not available 11/04/2022 How Many Children Do You Have? 2 Information not available 11/24/2022 Do You Have Any Pets? Yes MIGRATION.87938 62817 Information not available 11/04/2022 Do You Use Protection During Sex? No Information not available 11/24/2022 What Is Your Relationship Status? MIGRATION.88540 63538 Information not available 11/04/2022 Do You Use Your Seat Belt Or Car Seat Routinely? Yes MIGRATION.09106 18711 Information not available 11/04/2022 Are You Sexually Active? Yes Information not available 11/24/2022 Do You Have Smoke And Carbon Monoxide Detectors In Your Home? No MIGRATION.58616 49298 Information not available 11/04/2022 Are You Passively Exposed To Smoke? No MIGRATION.52629 07682 Information not available 11/04/2022 Are There Any Smokers In Your House? No MIGRATION.40626 83281 Information not available 11/04/2022 Do You Participate In Social Media? No MIGRATION.53197 44613 Information not available 11/04/2022 What Types Of Sporting Activities Do You Participate In? NA MIGRATION.06068 93705 Information not available 11/04/2022 Do You Use Sunscreen Routinely? Yes MIGRATION.79048 32802 Information not available 11/04/2022 Have You Recently Traveled Abroad? No MIGRATION.16199 16421 Information not available 11/04/2022 Are You Currently In School? No MIGRATION.98685 35373 Information not available 11/04/2022 Do You Have Any Dietary Restrictions? No MIGRATION.56668 76812 Information not available 11/04/2022 Sex: Female Functional Status Question Answer Note LastModified by [employer] - Biomolecular Determinationat ion Details LastModified Time Do you use any illicit or recreational drugs? No MIGRATION.0101444 026 Information not available 11/04/2022 Do you or have you ever used any other forms of tobacco or nicotine? No MIGRATION.5399305 026 Information not available 11/04/2022 What is your level of alcohol consumption? 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 Moderate MIGRATION.8066643 026 Information not available 11/04/2022 Mental Status Question Answer Note LastModified by Organizat ion Details LastModified Time Do you feel stressed (tense, restless, nervous, or anxious, or unable to sleep at night)? [id number] MIGRATION.[id number] 6 Information not available 11/04/2022 Family History Relationship Description Onset Age of this Age Resolved Age Notes LastModified by Organization Details LastModified Time Mother Diabetes mellitus MIGRATION.810 [id number] Not available 11/04/2022 02:40:10 Brother Diabetes mellitus MIGRATION.184 [id number] Not available 11/04/2022 02:40:10 Sister Diabetes mellitus MIGRATION.607 [id number] Not available 11/04/2022 02:40:10 Father Cirrhosis of liver MIGRATION.349 0473333 Not available 11/04/2022 02:40:10 Notes:NO ENT Medical [...] INSOMNIA N HIGH CHOLESTEROL / HYPERLIPIDEMIA N EYE PROBLEMS N HYPERTHYROIDISM N EATING DISORDER N EDEMA N CHRONIC PAIN SYNDROME N CAROTID BLOCKAGE N CONSTIPATION N BACK / NECK PROBLEMS N HAVE YOU BEEN HOSPITALIZED OR SEEN IN [facility] IN THE PAST YEAR ? N ATHEROSCLEROSIS [...] DISORDER N ALZHEIMER'S DISEASE N PAIN N DEMENTIA N HERPES N SEIZURES/EPILEPSY N HEADACHES/MIGRAINES N VASCULAR DISEASE N PACEMAKER N DIZZINESS N HEART DISEASE/HEART PROBLEMS N KIDNEY DISEASE N SCARLET FEVER N MULTIPLE SCLEROSIS N DEVELOPMENTAL OR BEHAVIORAL DISORDERS N MENTAL DISORDER/ILLNESS N CANCER: SPECIFY N CARDIAC ARRHYTHMIA N PNEUMONIA N ATRIAL FIBRILLATION N Gall [...] Influenza, split virus, quadrivalent, PF 06/10/2023 completed Elias thomas, [facility] 06/10/2023 09:30:55 Past Encounters Encounter ID Performer Location Encounter Start Date Encounter Closed Date Diagnosis/Indication Diagnosis SNOMED-CT Code Diagnosis ICD10 Code Diagnosis IMO Codes Diagnosis Note [id number] Raji Singh MD [facility] [address] [place] [address] 07/19/2025 13:43:54 07/24/2025 15:51:29 Impacted cerumen in left ear 1147829288 923319 H61.22 2253710 Health Concerns Section Related Observation LastModified by Organization Detai ls LastModified Time None Recorded Concern Status LastModified by Organization Details LastModified Time None Recorded Payers Encounter Date Sequence Insurance Name Policy Number Policy Kimball Covered Member ID Kimball Member ID Guarantor Name 07/19/2025 1 [facility] (MEDICARE REPLACEMENT/A DVANTAGE - HMO) [id number] Dori K Elders [id number] Dori Dominique Notes Date Note Type Note Provider Name and Address Organization Details Recorded Time 07/19/2025 text/html cerumen left Raji Singh MD [address] [facility], [facility] [address], [place], [address], [employer] 07/19/2025 14:35:10 OBGyn Episode No OBEpisode recorded.
== END 2025-08-24 09:07 | disposition home or self-care (01) ==
PROVIDERS: PCP Family Medicine; Visit Provider Internal Medicine Cardiovascular Disease
DX: Z01.810 Encounter for preprocedural cardiovascular examination (principal); R94.39 Abnormal result of other cardiovascular function study; Z79.82 Long term (current) use of aspirin; Z79.899 Other long term (current) drug therapy
CPT/HCPCS: 78452; 93017; A9502; J2785